=== PATIENT | female | born 1940 | race Caucasian/White ===

== ENCOUNTER 2016-05-22 17:48 | Emergency (ER) | payer MEDICARE ==
[2016-05-22 18:16] VITALS: TEMP 98.7
[2016-05-22] MEDS ORDERED: SODIUM CHLORIDE 0.9% 1,000 ML IV STA (19:09)
[2016-05-22] MEDS ORDERED: SODIUM CHLORIDE 0.9% 500 ML IV STA (19:09)
--- NOTE | 2016-05-22 19:14 | ED ---
General Adult HPI - General Chief complaint: Abdominal Pain Stated complaint: ABDOMINAL PAIN Time Seen by Provider: 05/22/16 18:33 Source: patient, family, RN notes reviewed, old records reviewed Mode of arrival: ambulatory Limitations: no limitations - History of Present Illness Initial comments: Chief complaint and history of present illness 36-year-old female with a complaint of discomfort to the right mid abdomen and the right lower quadrant after examination. Patient has a colonoscopy in the past which showed diverticulosis but she never diverticulitis. She denies any significant change in appetite. She reports her bowel habits have been normal for her which means occasional loose occasional formed. They been darker in color but not black. Denies any nausea no vomiting no injuries. She has a chronic supraumbilical hernia. - Related Data Home Medications Medication Instructions Recorded Confirmed Aspirin EC [Ecotrin Low Dose] 81 mg PO DAILY 05/22/16 05/22/16 Atenolol 100 mg PO DAILY 05/22/16 05/22/16 Calcium Carbonate [Calcium] 600 mg PO DAILY 05/22/16 05/22/16 Hydrochlorothiazide 50 mg PO DAILY 05/22/16 05/22/16 Multivitamins, Thera [Multivitamin] 1 tab PO DAILY 05/22/16 05/22/16 Potassium Chloride [Klor-Con 10] 10 meq PO DAILY 05/22/16 05/22/16 Simvastatin [Zocor] 20 mg PO HS 05/22/16 05/22/16 Previous Rx's Medication Instructions Recorded Levofloxacin [Levaquin] 500 mg PO DAILY #7 tab 05/23/16 metroNIDAZOLE [Flagyl] 500 mg PO QID #28 tab 05/23/16 Allergies Allergy/AdvReac Type Severity Reaction Status Date / Time No Known Allergies Allergy Verified 05/22/16 18:30 Review of Systems ROS Statement: Those systems with pertinent positive or pertinent negative responses have been documented in the HPI. Review of systems. No visual acuity or headache. No chest pain or shortness of breath. No epigastric discomfort , discomfort more toward the right mid abdomen and right lower quadrant. No dizziness. No neuro deficits. All systems were otherwise reviewed. Past medical problems significant for diet-controlled diabetes, hyperlipidemia hypertension and osteoarthritis. Surgeries tonsils and adenoids. Family history cancer of unknown type. Patient denies ALLERGIES nonsmoker nondrinker. ROS Other: All systems not noted in ROS Statement are negative. Past Medical History Past Medical History: Diabetes Mellitus, Hyperlipidemia, Hypertension, Osteoarthritis (OA) History of Any Multi-Drug Resistant Organisms: None Reported Past Surgical History: Adenoidectomy, Tonsillectomy Past Psychological History: No Psychological Hx Reported Smoking Status: Never smoker Past Alcohol Use History: None Reported Past Drug Use History: None Reported General Exam - General Exam Comments Initial Comments: General: The patient is awake and alert, planes of mild right lower right mid lateral abdominal pain. Vital signs temp 98.7 pulse 68 respiratory 18 pulse ox 96. Room air blood pressure 138/66. Mildly elevated systolic noted. Patient will be seeing her family physician next 1-4 weeks. Eye: Pupils are equal, round and reactive to light, extra-ocular movements are intact ; there is normal conjunctiva bilaterally. No signs of icterus. Ears, nose, mouth and throat: There are moist mucous membranes and no oral lesions. Neck: The neck is supple, there is no tenderness ,, no anterior cervical lymphadenopathy Cardiovascular: There is a regular rate and rhythm. No murmur, rub or gallop is appreciated. Respiratory: Lungs are clear to auscultation, respirations are non-labored, breath sounds are equal. No wheezes, stridor, rales, or rhonchi. Gastrointestinal: Mildly tender but reducible supraumbilical hernia. Long-standing. Discomfort with reduced. Also discomfort to the right lower quadrant but no guarding no rebound or referred pain. History of diverticulosis from colonoscopy years ago. Back: There is no tenderness to palpation in the midline. There is no obvious deformity. No rashes noted. Musculoskeletal: Normal ROM, no tenderness, There is no pedal edema. There is no calf tenderness or swelling. Sensation intact. Pulses equal bilaterally 2+. Neurological: No neuro deficits. Skin: Skin is warm and dry and no rashes or lesions are noted. Limitations: no limitations Course Vital Signs 05/22/16 18:14 Temperature 98.7 F Pulse Rate 68 Respiratory 18 Rate Blood Pressure 138/66 O2 Sat by Pulse 96 Oximetry Medical Decision Making - Medical Decision Making Medical decision making the patient's white count 8.4 hemoglobin 14 hematocrit of 44, potassium 3.4 with a BUN of 18 creatinine 0.6 with a GFR greater than 60. UA shows moderate leuk esterase 5 WBCs. Amylase and lipase within normal limits. X-ray of the abdomen was done reviewed by radiologist his impression is is no sign of intestinal obstruction or pneumoperitoneum. Fecal pattern is normal. There is no sign of mass. There are no pathologic calcifications over the kidneys. Lung bases are clear. Impression; nonacute abdomen as read by Dr. Rosas CT of the abdomen was done with IV and oral contrast. Radiologist reviewed his significant findings include; there is suggestion of a few small gallstones in the gallbladder. But no significant acute cholecystitis changes are noted. No hydronephrosis or obstructing opaque stones are noted in the kidneys. Bowel no significant inflammation is noted in the appendix area. Stomach appears grossly unremarkable. Small bowel loop showed no significant obstruction and/ or opacified with contrast. Moderate contrast and the gas distention of the colonic bowel loops is noted. There is evidence of mild to moderate colonic diverticulosis especially involving the descending and sigmoid colon. Possibility of mild acute diverticulitis changes cannot be excluded the sigmoid colon with mucosal thickening. No significant abscess collection is noted. Opacified appendix appears grossly unremarkable in the axial image 48 and coronal image 42. Diffuse mild to moderate atherosclerotic calcification is noted in the abdominal aorta and iliac arteries. There is moderate sized fat- containing and omentum containing umbilical hernia with the neck measuring 2 cm no bowel herniation is noted. Impression #12 gallstones are noted in the gallbladder possibility of acute cholecystitis cannot be excluded on this study. #2 thyromegaly fatty infiltration of liver. #3 moderate fat-containing umbilical hernia. #4 moderate colonic diverticulosis of the sigmoid colon possibility of mild acute diverticulitis changes cannot be excluded. No significant abscess collection is noted. #5 right renal cyst. As read by Dr. Hernandez These findings are consistent with what appears to be mild diverticulitis with discomfort in the suprapubic region. The patient will this time be started on Flagyl and Levaquin. Advised follow-up with family physician. If she develops discomfort to the right upper quadrant ultrasound will be performed. - Lab Data Result diagrams: 05/22/16 19:20 05/22/16 19:20 Lab Results 05/22/16 05/22/16 05/22/16 Range/Units 19:20 19:20 19:20 WBC 8.4 (3.8-10.6) k/uL RBC 4.63 (3.80-5.40) m/uL Hgb 14.1 (11.4-16.0) gm/dL Hct 44.0 (34.0-46.0) % MCV 95.1 (80.0-100.0) fL MCH 30.5 (25.0-35.0) pg MCHC 32.1 (31.0-37.0) g/dL RDW 13.3 (11.5-15.5) % Plt Count 182 (150-450) k/uL Neutrophils % 59 % Lymphocytes % 27 % Monocytes % 8 % Eosinophils % 3 % Basophils % 1 % Neutrophils # 4.9 (1.3-7.7) k/uL Lymphocytes # 2.3 (1.0-4.8) k/uL Monocytes # 0.6 (0-1.0) k/uL Eosinophils # 0.3 (0-0.7) k/uL Basophils # 0.1 (0-0.2) k/uL Sodium 141 (137-145) mmol/L Potassium 3.4 L (3.5-5.1) mmol/L Chloride 99 (98-107) mmol/L Carbon Dioxide 31 H (22-30) mmol/L Anion Gap 11 mmol/L BUN 18 H (7-17) mg/dL Creatinine 0.60 (0.52-1.04) mg/dL Est GFR (MDRD) Af Amer >60 (>60 ml/min/1.73 sqM) Est GFR (MDRD) Non-Af >60 (>60 ml/min/1.73 sqM) Glucose 97 (74-99) mg/dL Plasma Lactic Acid Nolan 0.9 (0.7-2.0) mmol/L Calcium 10.6 H (8.4-10.2) mg/dL Total Bilirubin 0.6 (0.2-1.3) mg/dL AST 28 (14-36) U/L ALT 37 (9-52) U/L Alkaline Phosphatase 60 (38-126) U/L Total Protein 6.6 (6.3-8.2) g/dL Albumin 3.9 (3.5-5.0) g/dL Amylase <30 L (30-110) U/L Lipase 94 (23-300) U/L Urine Color Urine Appearance (Clear) Urine pH (5.0-8.0) Ur Specific [place] (1.001-1.035) Urine Protein (Negative) Urine Glucose (UA) (Negative) Urine Ketones (Negative) Urine Blood (Negative) Urine Nitrate (Negative) Urine Bilirubin (Negative) Urine Urobilinogen (<2.0) mg/dL Ur Leukocyte Esterase (Negative) Urine WBC (0-5) /hpf Ur Squamous Epith Cells (0-4) /hpf Amorphous Sediment (None) /hpf Urine Mucus (None) /hpf 05/22/16 Range/Units 19:20 WBC (3.8-10.6) k/uL RBC (3.80-5.40) m/uL Hgb (11.4-16.0) gm/dL Hct (34.0-46.0) % MCV (80.0-100.0) fL MCH (25.0-35.0) pg MCHC (31.0-37.0) g/dL RDW (11.5-15.5) % Plt Count (150-450) k/uL Neutrophils % % Lymphocytes % % Monocytes % % Eosinophils % % Basophils % % Neutrophils # (1.3-7.7) k/uL Lymphocytes # (1.0-4.8) k/uL Monocytes # (0-1.0) k/uL Eosinophils # (0-0.7) k/uL Basophils # (0-0.2) k/uL Sodium (137-145) mmol/L Potassium (3.5-5.1) mmol/L Chloride (98-107) mmol/L Carbon Dioxide (22-30) mmol/L Anion Gap mmol/L BUN (7-17) mg/dL Creatinine (0.52-1.04) mg/dL Est GFR (MDRD) Af Amer (>60 ml/min/1.73 sqM) Est GFR (MDRD) Non-Af (>60 ml/min/1.73 sqM) Glucose (74-99) mg/dL Plasma Lactic Acid Nolan (0.7-2.0) mmol/L Calcium (8.4-10.2) mg/dL Total Bilirubin (0.2-1.3) mg/dL AST (14-36) U/L ALT (9-52) U/L Alkaline Phosphatase (38-126) U/L Total Protein (6.3-8.2) g/dL Albumin (3.5-5.0) g/dL Amylase (30-110) U/L Lipase (23-300) U/L Urine Color Yellow Urine Appearance Cloudy H (Clear) Urine pH 7.5 (5.0-8.0) Ur Specific [place] 1.013 (1.001-1.035) Urine Protein Negative (Negative) Urine Glucose (UA) Negative (Negative) Urine Ketones Negative (Negative) Urine Blood Negative (Negative) Urine Nitrate Negative (Negative) Urine Bilirubin Negative (Negative) Urine Urobilinogen <2.0 (<2.0) mg/dL Ur Leukocyte Esterase Moderate H (Negative) Urine WBC 5 (0-5) /hpf Ur Squamous Epith Cells 8 H (0-4) /hpf Amorphous Sediment Occasional H (None) /hpf Urine Mucus Rare H (None) /hpf Disposition Clinical Impression: Diverticulitis large intestine Disposition: HOME SELF-CARE Condition: Fair Instructions: Diverticulitis Diet (ED), Diverticulitis (ED) Additional Instructions: Increase fluids, take ibuprofen for pain. Take antibiotics as completed. Follow-up family physician. Pain increases return emergency room. No greasy fatty foods Prescriptions: Levofloxacin [Levaquin] 500 mg PO DAILY #7 tab metroNIDAZOLE [Flagyl] 500 mg PO QID #28 tab Time of Disposition: 00:55
[2016-05-22 19:32] LABS: Basophils # (A) 0.1 k/uL (0-0.2); Basophils % (A) 1 %; CH 31.7; CHCM 33.5; Eosinophils # (A) 0.3 k/uL (0-0.7); Eosinophils % (A) 3 %; HDW 2.26; HGB 14.1 gm/dL (11.4-16.0); Luc # (Auto) 0.22; Luc % (Auto) 3; Lymphocytes # (A) 2.3 k/uL (1.0-4.8); Lymphocytes % (A) 27 %; MCH 30.5 pg (25.0-35.0); MCHC 32.1 g/dL (31.0-37.0); MCV 95.1 fL (80.0-100.0); Mean Platelet Volume 8.8; Monocytes # (A) 0.6 k/uL (0-1.0); Monocytes % (A) 8 %; Neutrophils # (A) 4.9 k/uL (1.3-7.7); Neutrophils % (A) 59 %; RBC 4.63 m/uL (3.80-5.40); RDW 13.3 % (11.5-15.5); WBC 8.4 k/uL (3.8-10.6); WBC (Perox) 8.42
[2016-05-22 19:41] LABS: ALT 37 U/L (9-52); AST 28 U/L (14-36); Alkaline Phosphatase 60 U/L (38-126); Amylase <30 U/L (30-110); Anion Gap 11 mmol/L; Blood Urea Nitrogen 18 mg/dL (7-17); Calcium 10.6 mg/dL (8.4-10.2); Carbon Dioxide 31 mmol/L (22-30); Chloride 99 mmol/L (98-107); Glucose 97 mg/dL (74-99); Non-African American GFR(MDRD) >60 (>60 ml/min/1.73 sqM); Potassium 3.4 mmol/L (3.5-5.1); Sodium 141 mmol/L (137-145); Total Bilirubin 0.6 mg/dL (0.2-1.3); Total Protein 6.6 g/dL (6.3-8.2)
[2016-05-22 19:46] LABS: Amorphous Sediment,Urine Occasional /hpf; Appearance,Urine Cloudy (Clear); Bilirubin,Urine Negative (Negative); Glucose,Urine (UA) Negative (Negative); Ketones,Urine Negative (Negative); Leukocyte Esterase,Urine Moderate (Negative); Mucus,Urine Rare /hpf; Nitrite,Urine Negative (Negative); PH, Urine 7.5 (5.0-8.0); Particle Count 25610; Protein,Urine Negative (Negative); Specific Gravity,Urine 1.013 (1.001-1.035); Squamous Epithelial Cell,Urine 8 /hpf (0-4); UA Billing (MACRO vs. MICRO) MICRO; Urobilinogen,Urine <2.0 mg/dL (<2.0); WBC,Urine 5 /hpf (0-5)
--- NOTE | 2016-05-22 20:53 | XR ---
EXAMINATION TYPE: XR abdomen 2V DATE OF EXAM: 05/22/2016 8:32 PM COMPARISON: NONE HISTORY: Right lower quadrant pain TECHNIQUE: 3 views FINDINGS: There is no sign of intestinal obstruction or pneumoperitoneum. Fecal pattern is normal. Th ere is no sign of a mass. There are no pathologic calcifications over the kidneys. Lung bases are misbah ar. IMPRESSION: Nonacute abdomen.
[2016-05-22] MEDS ORDERED: IOHEXOL 350 MG/ML 25 ML BOTTLE (ORAL USE) PO PRN (22:22)
[2016-05-22] MEDS ORDERED: RX INFO: IV CONTRAST WAS GIVEN 1 EACH MISC MISCELLANE PRN (22:22)
--- NOTE | 2016-05-23 00:36 | CT ---
EXAMINATION TYPE: CT abdomen pelvis w con DATE OF EXAM: 05/23/2016 12:17 AM COMPARISON: NONE HISTORY: Rt sided abd pain. History of diverticulosis CT DLP: 1214.60 mGycm Automated exposure control for dose reduction was used. TECHNIQUE: Helical acquisition of images was performed from the lung bases through the pelvis. CONTRAST: Performed with Oral Contrast and with IV Contrast, patient injected with 100 mL of Omnipaque 300. FINDINGS: LUNG BASES: Mild dependent atelectasis is noted in both lung bases. Fat density area in the left lung base in the axial image 6 is most likely related to peritoneal fat with mild focal eventration herrera es of left hemidiaphragm. LIVER/GB: Mild fatty infiltration changes of liver are noted. Mild hepatomegaly is noted with promine nt Serge's lobe of the liver. There is suggestion of few small gallstones in the gallbladder. No significant acute cholecystitis ch anges are noted in this study. However if clinically indicated an ultrasound study would BE beneficia l for the gallbladder evaluation. PANCREAS: No significant abnormality is seen. SPLEEN: No significant abnormality is seen. ADRENALS: No significant abnormality is seen. KIDNEYS: Benign-appearing cystic changes are noted in the right kidney with the largest cyst measurin g 6 mm in the right kidney in the axial image 25. No hydronephrosis or obstructing opaque stones are noted in both kidneys. REPRODUCTIVE ORGANS: Uterus is tilted towards right. Both ovaries appear grossly unremarkable. URINARY BLADDER: No significant abnormality is seen. PELVIC ADENOPATHY: None visualized. OSSEOUS STRUCTURES: Mild multilevel degenerative changes are present in the thoracolumbar spine with disc disease changes at L5-S1. BOWEL: No significant inflammation is noted in the appendix area. Stomach appears grossly unremarkable. Small bowel loops showed no significant obstruction and are opa cified with contrast. Moderate contrast and the gas distention of colonic bowel loops is noted. There is evidence of mild t o moderate colonic diverticulosis especially involving descending and sigmoid colon. Possibility of m ild acute diverticulitis changes cannot be excluded in the sigmoid colon with mucosal thickening. No significant abscess collection is noted. Opacified appendix appears grossly unremarkable in the axial image 48 and coronal image 42. OTHERS: Diffuse [id number] atherosclerotic calcification is noted in the abdominal aorta and il iac arteries. There is moderate-sized fat-containing and omentum containing umbilical hernia with a neck measuring 2 cm in the axial image 50. No bowel herniation is noted. Small fat-containing inguinal hernias are noted bilaterally. IMPRESSION: 1. FEW GALLSTONES ARE NOTED IN THE GALLBLADDER. POSSIBILITY OF ACUTE CHOLECYSTITIS CANNOT BE EXCLUDED ON THIS STUDY. IF CLINICALLY INDICATED ULTRASOUND STUDY WOULD BE BENEFICIAL. 2. HEPATOMEGALY AND FATTY INFILTRATION OF LIVER. 3. MODERATE FAT-CONTAINING UMBILICAL HERNIA. 4. MODERATE COLONIC DIVERTICULOSIS OF SIGMOID COLON AND POSSIBILITY OF MILD ACUTE DIVERTICULITIS PÉREZ GES CANNOT BE EXCLUDED. NO SIGNIFICANT ABSCESS COLLECTION IS NOTED. 5. RIGHT RENAL CYSTS. A PHONE REPORT IS GIVEN TO DR. SCHUSTER AT THE TIME OF THE DICTATION.
[2016-05-23] MEDS ORDERED: LEVOFLOXACIN 500 MG TAB PO STA (00:53)
[2016-05-23] MEDS ORDERED: metroNIDAZOLE-NS PMX 500 MG in SALINE 1 100ML.BAG IVPB STA (00:53)
[2016-05-23] MEDS ORDERED: ACETAMINOPHEN TAB 500 MG TAB PO STA (00:57)
[2016-05-23 01:16] VITALS: BP 130/80; PULSE 70; RESP 16
== END 2016-05-23 01:15 | disposition home or self-care (01) ==
LOC: EC 17:48
DX: K57.32 Diverticulitis of large intestine without perforation or abscess without bleeding (principal); E78.5 Hyperlipidemia, unspecified; I10 Essential (primary) hypertension; M19.90 Unspecified osteoarthritis, unspecified site; Z79.82 Long term (current) use of aspirin; Z79.899 Other long term (current) drug therapy; R03.0 Elevated blood-pressure reading, without diagnosis of hypertension
CPT/HCPCS: 99285; 36415; 80053; 82150; 83605; 83690; 85025; 81001; 87086; 74020; 74177; Q9967

== ENCOUNTER → 2016-06-28 | Outpatient (CLI) | payer MEDICARE ==
[2016-06-28 13:19] LABS: Anion Gap 14 mmol/L; Blood Urea Nitrogen 16 mg/dL (7-17); Carbon Dioxide 30 mmol/L (22-30); Chloride 99 mmol/L (98-107); Non-African American GFR(MDRD) >60 (>60 ml/min/1.73 sqM); Potassium 4.2 mmol/L (3.5-5.1); Sodium 143 mmol/L (137-145)
== END | disposition home or self-care (01) ==
LOC: LABWHC1 12:28
PROVIDERS: ATTEND Internal Medicine Interventional Cardiology
DX: E78.2 Mixed hyperlipidemia (principal)
CPT/HCPCS: 36415; 80051; 82565; 84520

== ENCOUNTER → 2016-09-09 | Outpatient (CLI) | payer MEDICARE ==
--- NOTE | 2016-09-10 20:22 | US ---
EXAMINATION TYPE: US carotid duplex BILAT DATE OF EXAM: 09/09/2016 6:29 PM COMPARISON: 07/30/2013 CLINICAL HISTORY: 76-year-old female Carotid Artery Stenosis I65.29. Possible mini stroke x 2-3 years ago, HTN TECHNIQUE: Carotid duplex ultrasound examination. Indirect Doppler criteria was utilized. FINDINGS: No significant atherosclerotic change seen at either bifurcation. EXAM MEASUREMENTS: RIGHT: Peak Systolic Velocity (PSV) cm/sec ----- Right CCA: 87.9 ----- Right ICA: 88.8 ----- Right ECA: 85.5 ICA/CCA ratio: 1.0 RIGHT: End Diastole cm/sec ----- Right CCA: 24.8 ----- Right ICA: 29.3 ----- Right ECA: 10.6 LEFT: Peak Systolic Velocity (PSV) cm/sec ----- Left CCA: 71.5 ----- Left ICA: 108.2 ----- Left ECA: 84.7 ICA/CCA ratio: 1.5 LEFT: End Diastole cm/sec ----- Left CCA: 19.7 ----- Left ICA: 32.2 ----- Left ECA: 10.9 VERTEBRALS (direction of flow): Right Vertebral: Antegrade Left Vertebral: Antegrade IMPRESSION: No hemodynamically significant stenosis appreciated in either internal carotid artery. Criteria for Assigning % of Stenosis / Diameter reduction (Estimation based on the indirect measurements of the internal carotid artery velocities (ICA PSV). 1. Normal (no stenosis)=ICA PSV < 125 cm/s: ratio < 2.0: ICA EDV<40 cm/s. 2. Less than 50% stenosis=ICA PSV < 125 cm/s: ratio < 2.0: ICA EDV<40 cm/s. 3. 50 to 69% stenosis=ICA PSV of 125 to 230 cm/s: ration 2.0 ? 4.0: ICA EDV 40-100 cm/s. 4. Greater than 70% stenosis to near occlusion= ICA PSV > 230 cm/s: ratio > 4.0: ICA EDV > 100 cm/s. 5. Near occlusion= ICA PSV velocities may be low or undetectable: variable ratio and ICA EDV. 6. Total occlusion=unable to detect flow.
== END | disposition home or self-care (01) ==
LOC: RADUSMAIN 17:59
PROVIDERS: ATTEND Family Medicine
DX: I65.29 Occlusion and stenosis of unspecified carotid artery (principal)
CPT/HCPCS: 93880

== ENCOUNTER → 2016-11-21 | Outpatient (CLI) | payer MEDICARE ==
[2016-11-21 13:47] LABS: ALT 36 U/L (9-52); AST 29 U/L (14-36); Alkaline Phosphatase 57 U/L (38-126); Anion Gap 10 mmol/L; Blood Urea Nitrogen 19 mg/dL (7-17); Calcium 9.5 mg/dL (8.4-10.2); Carbon Dioxide 32 mmol/L (22-30); Chloride 100 mmol/L (98-107); Cholesterol 142 mg/dL (<200); Glucose 102 mg/dL (74-99); HDL Cholesterol 30 mg/dL (40-60); Non-African American GFR(MDRD) >60 (>60 ml/min/1.73 sqM); Potassium 3.6 mmol/L (3.5-5.1); Sodium 142 mmol/L (137-145); Total Bilirubin 0.7 mg/dL (0.2-1.3); Total Protein 6.7 g/dL (6.3-8.2); Triglycerides 132 mg/dL (<150)
== END | disposition home or self-care (01) ==
LOC: LABWHC1 12:33
PROVIDERS: ATTEND Internal Medicine Interventional Cardiology
DX: E78.2 Mixed hyperlipidemia (principal)
CPT/HCPCS: 36415; 80053; 80061

== ENCOUNTER → 2017-02-20 | Outpatient (CLI) | payer MEDICARE ==
[2017-02-20 10:19] LABS: Basophils # (A) 0.1 k/uL (0-0.2); Basophils % (A) 1 %; CH 30.5; CHCM 32.5; Eosinophils # (A) 0.2 k/uL (0-0.7); Eosinophils % (A) 3 %; HCT 44.6 % (34.0-46.0); HDW 2.14; HGB 14.7 gm/dL (11.4-16.0); Luc # (Auto) 0.26; Luc % (Auto) 4; Lymphocytes # (A) 1.5 k/uL (1.0-4.8); Lymphocytes % (A) 23 %; MCH 31.1 pg (25.0-35.0); MCV 94.4 fL (80.0-100.0); Mean Platelet Volume 7.9; Monocytes # (A) 0.6 k/uL (0-1.0); Monocytes % (A) 9 %; Neutrophils # (A) 3.9 k/uL (1.3-7.7); Neutrophils % (A) 60 %; RBC 4.72 m/uL (3.80-5.40); RDW 13.6 % (11.5-15.5); WBC 6.5 k/uL (3.8-10.6); WBC (Perox) 6.84
[2017-02-20 10:53] LABS: ALT 31 U/L (9-52); AST 30 U/L (14-36); Alkaline Phosphatase 57 U/L (38-126); Anion Gap 11 mmol/L; Blood Urea Nitrogen 16 mg/dL (7-17); Calcium 9.4 mg/dL (8.4-10.2); Carbon Dioxide 32 mmol/L (22-30); Chloride 99 mmol/L (98-107); Glucose 101 mg/dL (74-99); Non-African American GFR(MDRD) >60 (>60 ml/min/1.73 sqM); Potassium 3.8 mmol/L (3.5-5.1); Sodium 142 mmol/L (137-145); Total Bilirubin 0.5 mg/dL (0.2-1.3)
[2017-02-20 11:38] LABS: Hemoglobin A1C 5.6 % (4.2-6.1)
== END | disposition home or self-care (01) ==
LOC: LABWHC1 09:28
PROVIDERS: ATTEND Family Medicine
DX: E78.5 Hyperlipidemia, unspecified (principal); E11.9 Type 2 diabetes mellitus without complications
CPT/HCPCS: 36415; 80053; 83036; 84439; 84443; 85025

== ENCOUNTER → 2017-03-24 | Outpatient (CLI) | payer MEDICARE ==
--- NOTE | 2017-03-27 09:29 | MM ---
Reason for exam: screening (asymptomatic). Last mammogram was performed 1 year ago. History: Patient is postmenopausal. Physical Findings: A clinical breast exam by your physician is recommended on an annual basis and results should be correlated with mammographic findings. MG Screening Mammo w CAD Bilateral CC and MLO view(s) were taken. Prior study comparison: March 21, 2016, bilateral MG screening mammo w CAD. August 08, 2014, bilateral MG screening mammo w CAD. The breast tissue is almost entirely fat. There is chronic nodularity in the right breast. No significant changes when compared with prior studies. ASSESSMENT: Benign, BI-RAD 2 RECOMMENDATION: Routine screening mammogram of both breasts in 1 year.
--- NOTE | 2017-03-29 15:16 | BD ---
EXAMINATION TYPE: MG DEXA axial skeleton. DATE OF EXAM: 03/24/2017 COMPARISON: 08.08.2014 DEXA bone scan CLINICAL HISTORY: PT IS A 77 YR OLD FEMALE...ISD10 CODE: Z78.0 ASYMPTOMATIC MENOPAUSE Height: 58.5 Weight: 183 FRAX RISK QUESTIONS: Alcohol (3 or more units per day): NO Family History (Parent hip fracture): NO Glucocorticoids (More than 3mos): NO (Ex: prednisone, prednisolone, methylprednisolone, dexamethasone, and hydrocortisone). History of Fracture in Adulthood: NO Secondary Osteoporosis: NO 1. Type 1 Diabetes: NO 2. Hyperthyroidism: NO 3. Menopause before 45: NO 4. Malnutrition: NO 5. Chronic liver disease: NO Rheumatoid Arthritis: NO Current Tobacco Use: NO RISK FACTORS HISTORY OF: Family History of Osteoporosis: NO Active: MEDIUM Diet low in dairy products/other sources of calcium: NO Postmenopausal woman: 56 YRS OLD Lost more than 2 inches in height since high school: YES Hyperparathyroidism: NO Adrenal Insufficiency: NO MEDICATIONS: Additional Medications: BP MEDS, STATINS FOR CHOLESTEROL, VIT D AND CALCIUM Additional History: BORDERLINE DIABETIC, OSTEOARTHRITIS EXAM MEASUREMENTS: Bone mineral densitometry was performed using the [employer] System. Bone mineral density as measured about the Lumbar spine is: ----- L1-L4(G/cm2): 1.279 T Score Values are as follows: ----- L1: 1.8 ----- L2: 0.8 ----- L3: 0.9 ----- L4: 0.1 ----- L1-L4: 0.8 Bone mineral density has: Increased 1.9% SINCE STUDY OF 08.08.2014 Bone mineral density about the R hip (g/cm2): 1.145 Bone mineral density about the L hip (g/cm2): 1.203 T Score values are as follows: -----R Neck: 0.2 -----L Neck: 1.2 -----R Total: 1.1 -----L Total: 1.6 Bone mineral density has: Decreased -3.1% SINCE STUDY OF 08.08.2014 FRAX%'S: THERE IS A 6.7% CHANCE OF A MAJOR OSTEOPOROTIC FX AND A 0.5% FOR HIP FX....PROBABILITY OF FX IN 10 YRS TIME IMPRESSION: Normal (Values between +1 and -1 indicate normal bone mass). No significant change from prior. Consid er repeating this study in 5 years or sooner if there is some new clinical indication. NOTE: T-SCORE=SD OF THE YOUNG ADULT MEAN.
== END | disposition home or self-care (01) ==
LOC: RADMAMWWP 14:05
PROVIDERS: ATTEND Family Medicine
DX: Z12.31 Encounter for screening mammogram for malignant neoplasm of breast (principal); Z78.0 Asymptomatic menopausal state
CPT/HCPCS: 77080; G0202

== ENCOUNTER → 2017-11-17 | Outpatient (CLI) | payer MEDICARE ==
[2017-11-17 12:29] LABS: ALT 31 U/L (9-52); AST 36 U/L (14-36); Cholesterol 140 mg/dL (<200); HDL Cholesterol 28 mg/dL (40-60); LDL Cholesterol,Calculated 76 mg/dL (0-99); Triglycerides 178 mg/dL (<150)
== END | disposition home or self-care (01) ==
LOC: LABWHC1 11:44
PROVIDERS: ATTEND Internal Medicine Interventional Cardiology
DX: E78.2 Mixed hyperlipidemia (principal)
CPT/HCPCS: 36415; 80061; 84450; 84460

== ENCOUNTER → 2018-06-29 | Outpatient (CLI) | payer MEDICARE ==
[2018-06-29 17:47] LABS: Albumin/Globulin Ratio 1.9 (1.60-3.17); Anion Gap 5.8 mmol/L (4.00-12.00); Calcium 9.6 mg/dL (8.7-10.3); Carbon Dioxide 34.2 mmol/L (21.6-31.8); Globulin 2.1 g/dL (1.6-3.3); LDL Cholesterol,Calculated 80.8 mg/dL (0.0-131.0); Total Bilirubin 0.6 mg/dL (0.2-1.2); Total Protein 6.1 g/dL (6.2-8.2); VLDL Calculation 25.2 mg/dL (5.00-40.00)
== END | disposition home or self-care (01) ==
LOC: LABWHC1 10:44
PROVIDERS: ATTEND Internal Medicine Interventional Cardiology
DX: E78.2 Mixed hyperlipidemia (principal)
CPT/HCPCS: 36415; 80053; 80061

== ENCOUNTER → 2019-05-01 | Outpatient (CLI) | payer MEDICARE ==
--- NOTE | 2019-05-01 14:39 | BD ---
EXAMINATION TYPE: Axial Bone Density DATE OF EXAM: 05/01/2019 COMPARISON: DEXA bone scan March 24, 2017 CLINICAL HISTORY: Postmenopausal female Height: 4 FT 10 IN Weight: FRAX RISK QUESTIONS: Alcohol (3 or more units per day): NO Family History (Parent hip fracture): NO Glucocorticoids (More than 3mos): NO (Ex: prednisone, prednisolone, methylprednisolone, dexamethasone, and hydrocortisone). History of Fracture in Adulthood: NO Secondary Osteoporosis: 1. Type 1 Diabetes: NO 2. Hyperthyroidism: NO 3. Menopause before 45: NO 4. Malnutrition: NO 5. Chronic liver disease: NO Rheumatoid Arthritis: NO Current Tobacco Use: NO RISK FACTORS HISTORY OF: Active: YES Postmenopausal woman: AGE 51 Lost more than 2 inches in height since high school: YES MEDICATIONS: Additional Medications: MULTI VIT Additional History: EXAM MEASUREMENTS: Bone mineral densitometry was performed using the [employer] System. Bone mineral density as measured about the Lumbar spine is: ----- L1-L4(G/cm2): 1.272 T Score Values are as follows: ----- L2: 1.3 ----- L3: 1.0 ----- L4: -0.3 ----- L1-L4: 0.8 Bone mineral density has: DECREASED -0.4 % since study of: 2016 Bone mineral density about the R hip (g/cm2): 1.096 Bone mineral density about the L hip (g/cm2): 1.181 T Score values are as follows: -----R Neck: 0.4 -----L Neck: 1.0 -----R Total: 0.8 -----L Total: 1.4 Bone mineral density has: DECREASED -2.5 % since study of: 2016 IMPRESSION: Normal (Values between +1 and -1 indicate normal bone mass). Consider repeating this study in 5 year s or sooner if there is some new clinical indication. NOTE: T-SCORE=SD OF THE YOUNG ADULT MEAN.
--- NOTE | 2019-05-02 13:30 | MM ---
Reason for exam: screening (asymptomatic). Last mammogram was performed 1 year and 1 month ago. History: Patient is postmenopausal. Physical Findings: A clinical breast exam by your physician is recommended on an annual basis and results should be correlated with mammographic findings. MG 3D Screening Mammo W/Cad Bilateral CC and MLO view(s) were taken. Prior study comparison: March 28, 2018, bilateral MG 3d screening mammo w/cad. March 24, 2017, bilateral MG screening mammo w CAD. There are scattered fibroglandular densities. Benign appearing bilateral calcifications. No suspicious abnormality. No significant changes when compared with prior studies. ASSESSMENT: Benign, BI-RAD 2 RECOMMENDATION: Routine screening mammogram of both breasts in 1 year.
== END | disposition home or self-care (01) ==
LOC: RADMAMWWP 14:01
PROVIDERS: ATTEND Family Medicine
DX: Z12.31 Encounter for screening mammogram for malignant neoplasm of breast (principal); Z78.0 Asymptomatic menopausal state
CPT/HCPCS: 77063; 77067; 77080

== ENCOUNTER → 2019-07-17 | Outpatient (CLI) | payer MEDICARE ==
[2019-07-17 17:18] LABS: African American GFR (CKD) 96.2 (60.0-200.0); Albumin 4.3 g/dL (3.80-4.90); Albumin/Globulin Ratio 1.95 (1.60-3.17); Anion Gap 8.9 mmol/L (4.00-12.00); BUN/Creat Ratio 24.29 Ratio (12.00-20.00); Calcium 9.2 mg/dL (8.7-10.3); Carbon Dioxide 29.1 mmol/L (21.6-31.8); Chol/HDL Ratio 4.06; Globulin 2.2 g/dL (1.6-3.3); Total Bilirubin 0.5 mg/dL (0.3-1.2); Total Protein 6.5 g/dL (6.2-8.2)
== END | disposition home or self-care (01) ==
LOC: LABWHC1 11:23
PROVIDERS: ATTEND Internal Medicine Interventional Cardiology
DX: E78.2 Mixed hyperlipidemia (principal)
CPT/HCPCS: 36415; 80053; 80061

== ENCOUNTER → 2020-06-01 | Outpatient (CLI) | payer MEDICARE ==
--- NOTE | 2020-06-02 11:21 | MM ---
Reason for exam: screening (asymptomatic). Last mammogram was performed 1 year and 1 month ago. History: Patient is postmenopausal. Physical Findings: A clinical breast exam by your physician is recommended on an annual basis and results should be correlated with mammographic findings. MG 3D Screening Mammo W/Cad Bilateral CC and MLO view(s) were taken. Prior study comparison: May 01, 2019, bilateral MG 3d screening mammo w/cad. March 28, 2018, bilateral MG 3d screening mammo w/cad. There are scattered fibroglandular densities. No significant changes when compared with prior studies. ASSESSMENT: Benign, BI-RAD 2 RECOMMENDATION: Routine screening mammogram of both breasts in 1 year.
== END | disposition home or self-care (01) ==
LOC: RADMAMWWP 13:17
PROVIDERS: ATTEND Family Medicine
DX: Z12.31 Encounter for screening mammogram for malignant neoplasm of breast (principal)
CPT/HCPCS: 77063; 77067

== ENCOUNTER → 2020-06-01 | Outpatient (CLI) | payer MEDICARE ==
[2020-06-02 00:35] LABS: African American GFR (CKD) 95.5 (60.0-200.0); Albumin 4.5 g/dL (3.80-4.90); Albumin/Globulin Ratio 1.96 (1.60-3.17); Anion Gap 8.8 mmol/L (4.00-12.00); BUN/Creat Ratio 35.71 Ratio (12.00-20.00); Calcium 9.8 mg/dL (8.7-10.3); Carbon Dioxide 29.2 mmol/L (21.6-31.8); Chol/HDL Ratio 4.93; Globulin 2.3 g/dL (1.6-3.3); LDL Cholesterol,Calculated 85.6 mg/dL (0.0-131.0); Non-African American GFR(CKD) 82.4 (60.0-200.0); Potassium 4.1 mmol/L (3.5-5.5); Total Bilirubin 0.5 mg/dL (0.3-1.2); Total Protein 6.8 g/dL (6.2-8.2); VLDL Calculation 32.4 mg/dL (5.00-40.00)
== END | disposition home or self-care (01) ==
LOC: LABWHC1 13:21
PROVIDERS: ATTEND Internal Medicine Interventional Cardiology
DX: E78.2 Mixed hyperlipidemia (principal)
CPT/HCPCS: 36415; 80053; 80061

== ENCOUNTER → 2021-03-09 | Outpatient (CLI) | payer MEDICARE ==
[2021-03-09 20:30] LABS: Chol/HDL Ratio 5.38 Ratio; HDL Cholesterol 26.6 mg/dL (40.00-60.00); LDL Cholesterol,Calculated 76.8 mg/dL (0.0-131.0); VLDL Calculation 39.6 mg/dL (5.00-40.00)
== END | disposition home or self-care (01) ==
LOC: LABWHC1 13:11
PROVIDERS: ATTEND Nurse Practitioner Adult Health
DX: E78.2 Mixed hyperlipidemia (principal)
CPT/HCPCS: 36415; 80061; 84450; 84460

== ENCOUNTER → 2021-07-29 | Outpatient (CLI) | payer MEDICARE ==
[2021-07-29 18:20] LABS: ALT 24 U/L (8-44); AST 23 U/L (13-35); Albumin 4.1 g/dL (3.8-4.9); Alkaline Phosphatase 67 U/L (41-126); BUN/Creat Ratio 19.25 Ratio (12.00-20.00); Blood Urea Nitrogen 13.4 mg/dL (9.0-27.0); Calcium 9.4 mg/dL (8.7-10.3); Carbon Dioxide 26.2 mmol/L (20.0-27.5); Chloride 102 mmol/L (96-109); Chol/HDL Ratio 5.61 Ratio; Globulin 2.5 g/dL (1.6-3.3); Glucose 110 mg/dL (70-110); LDL Cholesterol,Calculated 86.1 mg/dL (0.0-131.0); Potassium 4.1 mmol/L (3.5-5.5); Sodium 140 mmol/L (135-145); Total Protein 6.6 g/dL (6.2-8.2)
== END | disposition home or self-care (01) ==
LOC: LABWHC1 12:36
PROVIDERS: ATTEND Nurse Practitioner Adult Health
DX: I10 Essential (primary) hypertension (principal); E78.2 Mixed hyperlipidemia
CPT/HCPCS: 36415; 80053; 80061

== ENCOUNTER → 2022-04-05 | Outpatient (CLI) | payer MEDICARE ==
[2022-04-05 19:46] LABS: ALT 25 U/L (8-44); AST 25 U/L (13-35); Chol/HDL Ratio 4.67 Ratio; LDL Cholesterol,Calculated 89.7 mg/dL (0.0-131.0)
== END | disposition home or self-care (01) ==
LOC: LABWHC1 10:21
PROVIDERS: ATTEND Internal Medicine Interventional Cardiology
DX: E78.2 Mixed hyperlipidemia (principal)
CPT/HCPCS: 36415; 80061; 84450; 84460

== ENCOUNTER → 2022-08-11 | Outpatient (CLI) | payer MEDICARE ==
--- NOTE | 2022-08-12 09:08 | MM ---
Reason for Exam: Screening (asymptomatic). Last mammogram was performed 2 year(s) and 2 month(s) ago. Patient History: Menarche at age 13. First Full-Term at age 26. Postmenopausal. Risk Values: Jonna 5 year model risk: 1.8%. NCI Lifetime model risk: 2.6%. Prior Study Comparison: 03/28/2018 Bilateral Screening Mammogram, [facility]. 05/01/2019 Bilateral Screening Mammogram, [facility]. 06/01/2020 Bilateral Screening Mammogram, [facility]. Tissue Density: There are scattered fibroglandular densities. Findings: Analyzed By CAD. There are benign-appearing punctate and vascular calcifications redemonstrated throughout the bilateral breasts. There is no suspicious new group of microcalcifications or new suspicious mass in either breast. Overall Assessment: Benign, BI-RAD 2 Management: Screening Mammogram of both breasts in 1 year. A clinical breast exam by your physician is recommended on an annual basis and results should be correlated with mammographic findings. Electronically signed and approved by: Alejandro Whaley M.D.
== END | disposition home or self-care (01) ==
LOC: RADMAMWWP 14:48
PROVIDERS: ATTEND Family Medicine
DX: Z12.31 Encounter for screening mammogram for malignant neoplasm of breast (principal); Z78.0 Asymptomatic menopausal state
CPT/HCPCS: 77063; 77067

== ENCOUNTER → 2022-09-29 | Outpatient (CLI) | payer MEDICARE ==
[2022-09-29 15:00] LABS: ALT 73 U/L (8-44); AST 41 U/L (13-35); African American GFR (CKD) 94.2 (60.0-200.0); Albumin/Globulin Ratio 1.43 (1.60-3.17); Alkaline Phosphatase 89 U/L (41-126); BUN/Creat Ratio 26.86 Ratio (12.00-20.00); Blood Urea Nitrogen 18.8 mg/dL (9.0-27.0); Calcium 9.6 mg/dL (8.7-10.3); Carbon Dioxide 27.7 mmol/L (20.0-27.5); Chloride 101 mmol/L (96-109); Chol/HDL Ratio 6.07 Ratio; Globulin 2.8 g/dL (1.6-3.3); Glucose 134 mg/dL (70-110); LDL Cholesterol,Calculated 120.8 mg/dL (0.0-131.0); Non-African American GFR(CKD) 81.3 (60.0-200.0); Potassium 4.4 mmol/L (3.5-5.5); Sodium 140 mmol/L (135-145); Total Protein 6.8 g/dL (6.2-8.2)
== END | disposition home or self-care (01) ==
LOC: LABWHC1 08:18
PROVIDERS: ATTEND Nurse Practitioner Adult Health
DX: I10 Essential (primary) hypertension (principal); E78.2 Mixed hyperlipidemia
CPT/HCPCS: 36415; 80053; 80061

== ENCOUNTER 2023-09-19 12:25 | Inpatient (IN) | payer MEDICARE ==
[2023-09-19] MEDS ORDERED: VANCOMYCIN IV PER PHARMACY 1 EACH MISC MISCELLANE PRN (12:33)
--- NOTE | 2023-09-19 12:44 | ED ---
General Adult HPI - General Chief complaint: Wound/Laceration Stated complaint: Sores on miracle. leg-sent by PCP Time Seen by Provider: 09/19/23 12:30 Source: patient, family, RN notes reviewed, old records reviewed Mode of arrival: ambulatory Limitations: no limitations - History of Present Illness Initial comments: This is an 83-year-old female comes in from Dr. Greene's office. Dr. Greene sent the patient in because she has bilateral cellulitis that has failed outpatient treatment. Patient denies any pain. Patient has any fever or chills. Patient denies any increased swelling is chronic long standing swelling. Patient denies any other symptoms such as abdominal pain difficulty breathing shortness of breath. - Related Data Home Medications Medication Instructions Recorded Confirmed Aspirin EC [Ecotrin Low Dose] 81 mg PO DAILY 05/22/16 09/19/23 Calcium Carbonate [Calcium] 600 mg PO DAILY 05/22/16 09/19/23 Multivitamins, Thera [Multivitamin] 1 tab PO DAILY 05/22/16 09/19/23 atenoloL 100 mg PO DAILY 05/22/16 09/19/23 Atorvastatin [Lipitor] 40 mg PO DAILY 09/19/23 09/19/23 Cefdinir [Omnicef] 300 mg PO BID 09/19/23 09/19/23 Previous Rx's Medication Instructions Recorded Levofloxacin [Levaquin] 500 mg PO DAILY #7 tab 05/23/16 Allergies Allergy/AdvReac Type Severity Reaction Status Date / Time No Known Allergies Allergy Verified 09/19/23 14:06 Review of Systems ROS Statement: Those systems with pertinent positive or pertinent negative responses have been documented in the HPI. ROS Other: All systems not noted in ROS Statement are negative. Past Medical History Past Medical History: Dementia, Diabetes Mellitus, Hyperlipidemia, Hypertension, Osteoarthritis (OA) History of Any Multi-Drug Resistant Organisms: None Reported Past Surgical History: Adenoidectomy, Tonsillectomy Past Psychological History: No Psychological Hx Reported Past Alcohol Use History: None Reported Past Drug Use History: None Reported General Exam - General Exam Comments Initial Comments: GENERAL: Patient is well-developed and well-nourished. Patient is nontoxic and well- hydrated and is in mild distress. ENT: Neck is soft and supple. No significant lymphadenopathy is noted. Oropharynx is clear. Moist mucous membranes. Neck has full range of motion without eliciting any pain. EYES: The sclera were anicteric and conjunctiva were pink and moist. Extraocular movements were intact and pupils were equal round and reactive to light. Eyelids were unremarkable. PULMONARY: Unlabored respirations. Good breath sounds bilaterally. No audible rales rhonchi or wheezing was noted. CARDIOVASCULAR: There is a regular rate and rhythm without any murmurs gallops or rubs. ABDOMEN: Soft and nontender with normal bowel sounds. SKIN: Patient has some stage I breakdown on the posterior aspect of both lower legs the left greater than the right there is some redness around the left posterior leg. NEUROLOGIC: Patient is alert and oriented x3. Cranial nerves II through XII are grossly intact. Motor and sensory are also intact. Normal speech, volume and content. Symmetrical smile. MUSCULOSKELETAL: Normal extremities with adequate strength and full range of motion. Patient has 4+ edema bilaterally LYMPHATICS: No significant lymphadenopathy is noted PSYCHIATRIC: Normal psychiatric evaluation. Limitations: no limitations Course Vital Signs 09/19/23 12:29 Temperature 98.1 F Pulse Rate 72 Respiratory 18 Rate Blood Pressure 152/79 O2 Sat by Pulse 97 Oximetry Medical Decision Making - Medical Decision Making EKG is interpreted by myself. EKG shows a sinus rhythm with occasional PAC at a rate of 71 bpm parables 151 QRS is 124 QT interval is 405 QTc is 427. Patient EKG shows no ST segment ovation or depression. Was pt. sent in by a medical professional or institution (, [facility], [facility] [facility], urgent care, hospital, or fdc...) When possible be specific @ -Dr. Greene sent the patient in Did you speak to anyone other than the patient for history (EMS, parent, family, police, friend...)? What history was obtained from this source @ -No Did you review nursing and triage notes (agree or disagree)? Why? @ -I reviewed and agree with nursing and triage notes Were old charts reviewed (outside hosp., previous admission, EMS record, old EKG, old radiological studies, urgent care reports/EKG's, fdc records)? Report findings @ -I reviewed prior lab work with today's lab work and there is no acute abnormality noted. Differential Diagnosis (chest pain, altered mental status, abdominal pain women, abdominal pain men, vaginal bleeding, weakness, fever, dyspnea, syncope, headache, dizziness, GI bleed, back pain, seizure, CVA, palpatations, mental health, musculoskeletal)? @ -Chronic cellulitis, acute cellulitis, DVT, lymphedema, chronic edema this is not an all-inclusive list EKG interpreted by me (3pts min.). @ -As above X-rays interpreted by me (1pt min.). @ -None done CT interpreted by me (1pt min.). @ -None done U/S interpreted by me (1pt. min.). @ -None done What testing was considered but not performed or refused? (CT, X-rays, U/S, labs)? Why? @ -None What meds were considered but not given or refused? Why? @ -None Did you discuss the management of the patient with other professionals (professionals i.e. , PA, FLUTE TEACHER, lab, RT, psych nurse, secondary social studies teacher, plaster machine operator, teacher, chief security and safety officer, vocational case manager)? Give summary @ -I spoke with Dr. Castro he agreed admit the patient admit the patient wrote admitting orders Was smoking cessation discussed for >3mins.? @ -No Was critical care preformed (if so, how long)? @ -No Were there social determinants of health that impacted care today? How? (Homelessness, low income, unemployed, alcoholism, drug addiction, transportation, low edu. Level, literacy, decrease access to med. care, fci, rehab)? @ -No Was there de-escalation of care discussed even if they declined (Discuss DNR or withdrawal of care, Hospice)? DNR status @ -No What co-morbidities impacted this encounter? (DM, HTN, Smoking, COPD, CAD, Cancer, CVA, ARF, Chemo, Hep., AIDS, mental health diagnosis, sleep apnea, morbid obesity)? @ -None Was patient admitted / discharged? Hospital course, mention meds given and route, prescriptions, significant lab abnormalities, going to OR and other pertinent info. @ -The primary doctor was concerned that the antibiotics failed and the patient still had an infection I started the patient on Zosyn and Vanco. I admitted the patient to Dr. Castro and wrote admitting orders Undiagnosed new problem with uncertain prognosis? @ -No Drug Therapy requiring intensive monitoring for toxicity (Heparin, Nitro, Insulin, Cardizem)? @ -No Were any procedures done? @ -No Diagnosis/symptom? @ -Cellulitis Acute, or Chronic, or Acute on Chronic? @ -Acute on chronic Uncomplicated (without systemic symptoms) or Complicated (systemic symptoms)? @ -Complicated Side effects of treatment? @ -No Exacerbation, Progression, or Severe Exacerbation? @ -No Poses a threat to life or bodily function? How? (Chest pain, USA, LA, pneumonia, PE, COPD, DKA, ARF, appy, cholecystitis, CVA, Diverticulitis, Homicidal, Suicidal, threat to staff... and all critical care pts) @ -Yes this could lead to sepsis and endorgan dysfunction Diagnosis/symptom? @ -Peripheral edema Acute, or Chronic, or Acute on Chronic? @ -Acute Uncomplicated (without systemic symptoms) or Complicated (systemic symptoms)? @ -Complicated Side effects of treatment? @ -None Exacerbation, Progression, or Severe Exacerbation] @ -No Poses a threat to life or bodily function? @ -No - Lab Data Result diagrams: 09/19/23 12:54 09/19/23 12:54 Lab Results 09/19/23 09/19/23 09/19/23 Range/Units 12:54 12:54 12:54 WBC 10.1 (3.8-10.6) k/uL RBC 4.75 (3.80-5.40) m/uL Hgb 14.3 (11.4-16.0) gm/dL Hct 44.9 (34.0-46.0) % MCV 94.7 (80.0-100.0) fL MCH 30.1 (25.0-35.0) pg MCHC 31.7 (31.0-37.0) g/dL RDW 14.4 (11.5-15.5) % Plt Count 190 (150-450) k/uL MPV 9.4 Neutrophils % 68 % Lymphocytes % 17 % Monocytes % 9 % Eosinophils % 3 % Basophils % 1 % Neutrophils # 6.8 (1.3-7.7) k/uL Lymphocytes # 1.7 (1.0-4.8) k/uL Monocytes # 0.9 (0-1.0) k/uL Eosinophils # 0.4 (0-0.7) k/uL Basophils # 0.1 (0-0.2) k/uL PT 11.5 (10.0-12.5) sec INR 1.1 (<1.2) APTT 22.3 (22.0-30.0) sec Sodium 139 (137-145) mmol/L Potassium 4.9 (3.5-5.1) mmol/L Chloride 105 (98-107) mmol/L Carbon Dioxide 29 (22-30) mmol/L Anion Gap 5 mmol/L BUN 24 H (7-17) mg/dL Creatinine 0.60 (0.52-1.04) mg/dL Est GFR (CKD-EPI)AfAm >90 (>60 ml/min/1.73 sqM) Est GFR (CKD-EPI)NonAf 85 (>60 ml/min/1.73 sqM) Glucose 102 H (74-99) mg/dL Plasma Lactic Acid Onlan (0.7-2.0) mmol/L Calcium 9.3 (8.4-10.2) mg/dL Total Bilirubin 1.0 (0.2-1.3) mg/dL AST 38 H (14-36) U/L ALT 17 (4-34) U/L Alkaline Phosphatase 80 (38-126) U/L Total Protein 7.4 (6.3-8.2) g/dL Albumin 3.9 (3.5-5.0) g/dL 09/19/23 Range/Units 12:54 WBC (3.8-10.6) k/uL RBC (3.80-5.40) m/uL Hgb (11.4-16.0) gm/dL Hct (34.0-46.0) % MCV (80.0-100.0) fL MCH (25.0-35.0) pg MCHC (31.0-37.0) g/dL RDW (11.5-15.5) % Plt Count (150-450) k/uL MPV Neutrophils % % Lymphocytes % % Monocytes % % Eosinophils % % Basophils % % Neutrophils # (1.3-7.7) k/uL Lymphocytes # (1.0-4.8) k/uL Monocytes # (0-1.0) k/uL Eosinophils # (0-0.7) k/uL Basophils # (0-0.2) k/uL PT (10.0-12.5) sec INR (<1.2) APTT (22.0-30.0) sec Sodium (137-145) mmol/L Potassium (3.5-5.1) mmol/L Chloride (98-107) mmol/L Carbon Dioxide (22-30) mmol/L Anion Gap mmol/L BUN (7-17) mg/dL Creatinine (0.52-1.04) mg/dL Est GFR (CKD-EPI)AfAm (>60 ml/min/1.73 sqM) Est GFR (CKD-EPI)NonAf (>60 ml/min/1.73 sqM) Glucose (74-99) mg/dL Plasma Lactic Acid Nolan 1.4 (0.7-2.0) mmol/L Calcium (8.4-10.2) mg/dL Total Bilirubin (0.2-1.3) mg/dL AST (14-36) U/L ALT (4-34) U/L Alkaline Phosphatase (38-126) U/L Total Protein (6.3-8.2) g/dL Albumin (3.5-5.0) g/dL Disposition Clinical Impression: Peripheral edema, Acute cellulitis Disposition: ADMITTED IP TO THIS HOSP Referrals: Yahir Greene MD [Primary Care Provider] - 1-2 days Time of Disposition: 15:16
[2023-09-19] MEDS: PIPERACILLIN-TAZOBACTAM 3.375 GM in SODIUM CHLORIDE 0.9% 100 ML IVPB STA (13:01)
[2023-09-19] MEDS: KETOROLAC 15 MG/ML 1 ML VIAL IVP STA (13:03)
[2023-09-19 13:08] LABS: Basophils # (A) 0.1 k/uL (0-0.2); Basophils % (A) 1 %; Eosinophils # (A) 0.4 k/uL (0-0.7); Eosinophils % (A) 3 %; HCT 44.9 % (34.0-46.0); HGB 14.3 gm/dL (11.4-16.0); Lymphocytes # (A) 1.7 k/uL (1.0-4.8); Lymphocytes % (A) 17 %; MCH 30.1 pg (25.0-35.0); MCHC 31.7 g/dL (31.0-37.0); MCV 94.7 fL (80.0-100.0); Mean Platelet Volume 9.4; Monocytes # (A) 0.9 k/uL (0-1.0); Monocytes % (A) 9 %; Neutrophils # (A) 6.8 k/uL (1.3-7.7); Neutrophils % (A) 68 %; Platelet Count 190 k/uL (150-450); RBC 4.75 m/uL (3.80-5.40); RDW 14.4 % (11.5-15.5); WBC 10.1 k/uL (3.8-10.6)
[2023-09-19 13:20] LABS: INR 1.1 (<1.2); Partial Thromboplastin Time 22.3 sec (22.0-30.0); Prothrombin Time 11.5 sec (10.0-12.5)
[2023-09-19 13:24] LABS: ALT 17 U/L (4-34); African American GFR (CKD) >90 (>60 ml/min/1.73 sqM); Albumin 3.9 g/dL (3.5-5.0); Anion Gap 5 mmol/L; Blood Urea Nitrogen 24 mg/dL (7-17); Calcium 9.3 mg/dL (8.4-10.2); Carbon Dioxide 29 mmol/L (22-30); Chloride 105 mmol/L (98-107); Glucose 102 mg/dL (74-99); Non-African American GFR(CKD) 85 (>60 ml/min/1.73 sqM); Sodium 139 mmol/L (137-145); Total Protein 7.4 g/dL (6.3-8.2)
[2023-09-19 13:37] LABS: AST 38 U/L (14-36); Alkaline Phosphatase 80 U/L (38-126); Potassium 4.9 mmol/L (3.5-5.1)
[2023-09-19] MEDS: VANCOMYCIN 1,750 MG in SODIUM CHLORIDE 0.9% 500 ML 500 ML IVPB ONE (14:17)
[2023-09-19] MEDS: MELATONIN 3 MG TABLET PO SCH (20:42)
[2023-09-19] MEDS: PIPERACILLIN-TAZOBACTAM 3.375 GM in SODIUM CHLORIDE 0.9% 100 ML IVPB SCH (20:43)
[2023-09-20 05:12] LABS: African American GFR (CKD) 88 (>60 ml/min/1.73 sqM); Anion Gap 7 mmol/L; Blood Urea Nitrogen 23 mg/dL (7-17); Calcium 8.6 mg/dL (8.4-10.2); Carbon Dioxide 22 mmol/L (22-30); Chloride 107 mmol/L (98-107); Glucose 128 mg/dL (74-99); Non-African American GFR(CKD) 76 (>60 ml/min/1.73 sqM); Sodium 136 mmol/L (137-145)
[2023-09-20] MEDS: VANCOMYCIN 1,750 MG in SODIUM CHLORIDE 0.9% 500 ML 500 ML IVPB SCH (05:30)
[2023-09-20] MEDS: ATORVASTATIN 40 MG TAB PO SCH (08:10)
[2023-09-20] MEDS: atenoloL 50 MG TAB PO SCH (08:10)
[2023-09-20 12:19] LABS: Glucose,Whole Blood 105 mg/dL (70-110)
[2023-09-20] MEDS: ASPIRIN 81 MG PO SCH (13:08)
[2023-09-20] MEDS: HEPARIN SODIUM,PORCINE 5,000 UNIT/ML 1 ML VIAL SQ SCH (13:08)
[2023-09-20 16:51] LABS: Glucose,Whole Blood 96 mg/dL (70-110)
[2023-09-20] MEDS: HYDROcodone/APAP 5-325MG 1 EACH TAB PO PRN (17:22)
--- NOTE | 2023-09-20 22:56 | P.CONS ---
History of Present Illness - Reason for Consult Consult date: 09/20/23 - History of Present Illness Patient is a 83-year-old female with a past medical history significant for diabetes mellitus hypertension hyperlipidemia osteoarthritis dementia patient also have chronic lower extremity venous stasis and swelling and apparently has been treated with multiple courses of antibiotic for lower extremity cellulitis patient has been sent from PCP office concerning for bilateral lower extreme cellulitis failing outpatient therapy apparently the patient simply having increasing swelling as well as redness to bilateral lower extremity and has developed superficial ulceration to the bilateral posterior leg area patient has been complaining of pain to bilateral extremity to be sharp moderate intensity without radiation with associated swelling and redness and did have some drainage per the family patient on presentation to the hospital was afebrile and did have a low-grade fever of 99.3 F this morning patient was not tachycardic hypotensive or hypoxic and no need for supplemental oxygen white count was 10.1 creatinine 0.60 electrolyte has been normal liver enzymes are normal patient was started on vancomycin and Kiya infectious disease was consulted this morning for further management of her antibiotic therapy Past Medical History Past Medical History: Dementia, Diabetes Mellitus, Hyperlipidemia, Hypertension, Osteoarthritis (OA) Additional Past Medical History / Comment(s): Family states she is borderline diabetic. Takes no meds History of Any Multi-Drug Resistant Organisms: None Reported Past Surgical History: Adenoidectomy, Tonsillectomy Past Psychological History: No Psychological Hx Reported Smoking Status: Unknown if ever smoked Past Alcohol Use History: None Reported Past Drug Use History: None Reported Medications and Allergies Home Medications Medication Instructions Recorded Confirmed Type Aspirin EC [Ecotrin Low Dose] 81 mg PO DAILY 05/22/16 09/19/23 History Calcium Carbonate [Calcium] 600 mg PO DAILY 05/22/16 09/19/23 History Multivitamins, Thera [Multivitamin] 1 tab PO DAILY 05/22/16 09/19/23 History atenoloL 100 mg PO DAILY 05/22/16 09/19/23 History Levofloxacin [Levaquin] 500 mg PO DAILY #7 tab 05/23/16 09/19/23 Rx Atorvastatin [Lipitor] 40 mg PO DAILY 09/19/23 09/19/23 History Cefdinir [Omnicef] 300 mg PO BID 09/19/23 09/19/23 History Allergies Allergy/AdvReac Type Severity Reaction Status Date / Time No Known Allergies Allergy Verified 09/19/23 14:06 Physical Exam Vitals: Vital Signs Temp Pulse Pulse Resp BP BP Pulse Ox 09/20/23 13:55 98.1 F 71 18 125/67 97 09/20/23 06:50 99.3 F 77 22 97/51 91 L 09/20/23 01:23 98.9 F 76 18 133/69 95 09/19/23 20:00 97.4 F L 81 18 135/84 96 09/19/23 18:32 97.5 F L 61 18 149/83 97 09/19/23 16:54 98 F 72 18 161/86 97 Intake and Output 09/20/23 09/20/23 09/20/23 06:59 14:59 22:59 Other: # Voids 1 Results CBC & Chem 7: 09/19/23 12:54 09/21/23 03:13 Labs: Abnormal Lab Results - Last 24 Hours (Table) 09/20/23 Range/Units 04:28 Sodium 136 L (137-145) mmol/L BUN 23 H (7-17) mg/dL Glucose 128 H (74-99) mg/dL Assessment and Plan Plan: 1patient with bilateral lower extremity venous stasis superficial ulceration and cellulitis likely from gram-positive skin gurdeep failing outpatient oral antibiotic therapy clinic suspicion low for MRSA or gram-negative infection 2-we will discontinue vancomycin and Zosyn and recommendation will put the patient high risk of nephrotoxicity 3-start the patient cefazolin 2 g every 8 hours 4-dry Aquacel silver dressing to the open area followed by Vasyl wrap from just above the toe to below the knee change every 48 hours We will follow on clinical condition and cultures to further adjust medication if needed Thank you for this consultation we will follow the patient along with you Dictation was produced using [employer] dictation software. please excuse any grammatical, word or spelling errors. Time with Patient: Greater than 30
[2023-09-21] MEDS ORDERED: DEXTROSE 50% SYRINGE 50 ML IVP PRN ×2 (01:49)
--- NOTE | 2023-09-21 01:52 | P.HPIM ---
History of Present Illness H&P Date: 09/20/23 Chief Complaint: Nonhealing leg wounds Patient is a 83-year-old female with a past medical history of hypertension, hyperlipidemia, diabetes type 2 diet-controlled, dementia and osteoarthritis was sent from Dr. Greene's office due to nonhealing bilateral lower extremity wounds. Patient has been having lower extremity wounds mainly on the left lateral side of the leg. Patient has been having infection for the past 1 month. She was recently on Levaquin and also on Omnicef. Patient directed any fever or chills. No cough or sputum production. No chest pain or shortness of breath. Patient has chronic lower extremity swelling due to venous stasis and is mostly sitting in the couch at home. Laboratory pressure WBC 10.1 hemoglobin 14.3 and platelets 190 sodium 139 pot assium 4.9 chloride 105 bicarb is 29 BUN 24 and creatinine 0.6 and blood sugar 102 albumin 3.9 Patient was started on vancomycin and Zosyn. Review of Systems Constitutional: Patient denies any fever or chills . No generalized weakness or weight loss. Abdomen: Patient denied nausea vomiting and diarrhea and abdominal pain. Cardiovascular: Patient denies any chest pain or short of breath no palpitations. Respiratory: patient denied any cough is from production. No shortness of breath Neurologic: Patient denied any numbness or tingling headache. Musculoskeletal: Patient denies any complaints of joint swelling or deformity. Skin: Leg wounds Psychiatric: Negative Endocrine: No heat or cold intolerance. No recent weight gain. Genitourinary: No dysuria or hematuria. All other 14 point ROS negative except the above Past Medical History Past Medical History: Dementia, Diabetes Mellitus, Hyperlipidemia, Hypertension, Osteoarthritis (OA) Additional Past Medical History / Comment(s): Family states she is borderline diabetic. Takes no meds History of Any Multi-Drug Resistant Organisms: None Reported Past Surgical History: Adenoidectomy, Tonsillectomy Past Psychological History: No Psychological Hx Reported Smoking Status: Unknown if ever smoked Past Alcohol Use History: None Reported Past Drug Use History: None Reported Medications and Allergies Home Medications Medication Instructions Recorded Confirmed Type Aspirin EC [Ecotrin Low Dose] 81 mg PO DAILY 05/22/16 09/19/23 History Calcium Carbonate [Calcium] 600 mg PO DAILY 05/22/16 09/19/23 History Multivitamins, Thera [Multivitamin] 1 tab PO DAILY 05/22/16 09/19/23 History atenoloL 100 mg PO DAILY 05/22/16 09/19/23 History Levofloxacin [Levaquin] 500 mg PO DAILY #7 tab 05/23/16 09/19/23 Rx Atorvastatin [Lipitor] 40 mg PO DAILY 09/19/23 09/19/23 History Cefdinir [Omnicef] 300 mg PO BID 09/19/23 09/19/23 History Allergies Allergy/AdvReac Type Severity Reaction Status Date / Time No Known Allergies Allergy Verified 09/19/23 14:06 Physical Exam Vitals: Vital Signs Temp Pulse Pulse Resp BP BP Pulse Ox 09/20/23 06:50 99.3 F 77 22 97/51 91 L 09/20/23 01:23 98.9 F 76 18 133/69 95 09/19/23 20:00 97.4 F L 81 18 135/84 96 09/19/23 18:32 97.5 F L 61 18 149/83 97 09/19/23 16:54 98 F 72 18 161/86 97 09/19/23 14:32 98.1 F 70 18 150/89 97 09/19/23 12:29 98.1 F 72 18 152/79 97 Intake and Output 09/19/23 09/20/23 09/20/23 22:59 06:59 14:59 Other: Voiding Method Toilet Diaper # Voids 1 Weight 102.512 kg PHYSICAL EXAMINATION: Patient is lying in the bed comfortably, no acute distress, awake alert and vero ented.. HEENT: Normocephalic. Neck is supple. Pupils reactive. Nostrils clear. Oral cavity is moist. Neck reveals no JVD, carotid bruits, or thyromegaly. CHEST EXAMINATION: Trachea is central. Symmetrical expansion. Lung benton clear to auscultation and percussion. CARDIAC: Normal S1, S2 with no gallops. No murmurs ABDOMEN: Soft. Bowel sounds normal. No organomegaly. No abdominal bruits. Extremities: Bilateral lower extremity 2+ edema with ulcers over the lateral aspect of the leg left greater than right.. No clubbing or cyanosis Neurologically awake, alert, oriented x 1-2. Cognitive impairment. Able to move all extremities.. No gross focal deficits noted Skin: No rash or skin lesions. Psychiatric: Coperative. Nonsuicidal Musculoskeletal: No joint swelling or deformity. Normal range of motion. Results CBC & Chem 7: 09/19/23 12:54 09/20/23 04:28 Labs: Abnormal Lab Results - Last 24 Hours (Table) 09/19/23 09/20/23 Range/Units 12:54 04:28 Sodium 136 L (137-145) mmol/L BUN 24 H 23 H (7-17) mg/dL Glucose 102 H 128 H (74-99) mg/dL AST 38 H (14-36) U/L Thrombosis Risk Factor Assmnt - DVT/VTE Prophylaxis DVT/VTE Prophylaxis: Pharmacologic Prophylaxis ordered - Choose All That Apply Any of the Below Risk Factors Present?: Yes Each Factor Represents 1 point: Obesity (BMI >25) Each Risk Factor Represents 3 Points: Age 75 years or older Thrombosis Risk Factor Assessment Total Risk Factor Score: 4 Thrombosis Risk Factor Assessment Level: Moderate Risk Assessment and Plan Assessment: Bilateral lower extremity venous stasis ulcers and surrounding cellulitis involving mainly on the left lateral lower leg.. Failed outpatient antibiotic therapy. Chronic lower extremity swelling due to venous stasis Hypertension Hyperemia Borderline diabetes Osteoarthritis Dementia DVT prophylaxis with heparin subcu Morbid obesity BMI 41.3 Plan: Patient will be continued on antibiotics in the form of cefazolin. ID is on board. Patient was given vancomycin and Zosyn in the ER. Continue home medications and insulin sliding scale for blood sugar control. Continue with pain medications and follow-up closely. Discussed with her family at bedside in detail. ID is on board.
[2023-09-21 05:49] LABS: Glucose,Whole Blood 136 mg/dL (70-110)
[2023-09-21] MEDS ORDERED: VANCOMYCIN 1,750 MG in SODIUM CHLORIDE 0.9% 500 ML 500 ML IVPB SCH (06:00)
[2023-09-21] MEDS: INSULIN ASPART (NovoLOG) 100 UNIT/ML VIAL SQ SCH (06:06)
[2023-09-21 09:12] LABS: BUN/Creat Ratio 19.71 Ratio (12.00-20.00); Blood Urea Nitrogen 13.8 mg/dL (9.0-27.0); Calcium 8.3 mg/dL (8.7-10.3); Carbon Dioxide 21.5 mmol/L (21.6-31.8); Chloride 105 mmol/L (96-109); Glucose 146 mg/dL (70-110); Potassium 3.7 mmol/L (3.5-5.5); Sodium 138 mmol/L (135-145)
[2023-09-21] MEDS: MULTIVITAMINS, THERA 1 EACH TAB PO SCH (09:33)
[2023-09-21] MEDS: CALCIUM CARB-VIT D 500 MG-5 MCG TAB PO SCH (09:33)
[2023-09-21 11:55] LABS: Glucose,Whole Blood 147 mg/dL (70-110)
--- NOTE | 2023-09-21 16:08 | P.PN ---
Subjective Progress Note Date: 09/21/23 Principal diagnosis: Reason for follow-up is bilateral lower extremity ulcer and cellulitis Patient is a 83-year-old female with a past medical history significant for diabetes mellitus hypertension hyperlipidemia osteoarthritis dementia patient also have chronic lower extremity venous stasis and swelling and apparently has been treated with multiple courses of antibiotic for lower extremity cellulitis and sent to the hospital concerning for cellulitis failing outpatient therapy. On today's evaluation that is 09/21/2023,the patient denies any fever or any chills, patient is breathing comfortably on room air, the patient denies chest pain shortness of breath and no significant cough, patient denies abdominal pain, no nausea vomiting or diarrhea. Patient denies having any pain to bilateral lower extremity. Patient did have a creatinine 0.7 no CBC was done today blood cultures are pending Objective - Vital Signs Vital signs: Vital Signs Temp 99.0 F 09/21/23 09:32 Pulse 93 09/21/23 07:11 Resp 18 09/21/23 07:11 BP 135/77 09/21/23 07:11 Pulse Ox 92 L 09/21/23 09:32 FiO2 Intake & Output 09/20/23 09/21/23 09/21/23 18:59 06:59 18:59 Other: Voiding Method Toilet Toilet Diaper # Voids 4 1 - Exam GENERAL DESCRIPTION: An elderly female up in the chair in no distress RESPIRATORY SYSTEM: Unlabored breathing , decreased breath sounds at bases HEART: S1 S2 regular rate and rhythm , ABDOMEN: Soft , no tenderness EXTREMITIES: Bilateral legs are currently wrapped in Vasyl wrap no drainage - Labs CBC & Chem 7: 09/19/23 12:54 09/21/23 03:13 Labs: Abnormal Lab Results - Last 24 Hours (Table) 09/21/23 09/21/23 09/21/23 Range/Units 03:13 05:48 11:54 Carbon Dioxide 21.5 L (21.6-31.8) mmol/L Glucose 146 H (70-110) mg/dL POC Glucose (mg/dL) 136 H 147 H (70-110) mg/dL Calcium 8.3 L (8.7-10.3) mg/dL Microbiology - Last 24 Hours (Table) 09/19/23 12:54 Blood Culture - Preliminary Blood 09/19/23 12:54 Blood Culture - Preliminary Blood Assessment and Plan (1) Bilateral leg ulcer Current Visit: Yes Status: Acute Code(s): L97.919 - NON-PRS CHRONIC ULC UNSP PRT OF R LOW LEG W UNSP SEVERITY; L97.929 - NON-PRS CHRONIC ULC UNSP PRT OF L LOW LEG W UNSP SEVERITY SNOMED Code(s): 71728534 (2) Bilateral lower leg cellulitis Current Visit: Yes Status: Acute Code(s): L03.116 - CELLULITIS OF LEFT LOWER LIMB; L03.115 - CELLULITIS OF RIGHT LOWER LIMB SNOMED Code(s): 284057799 (3) Failure of outpatient treatment Current Visit: Yes Status: Acute Code(s): Z78.9 - OTHER SPECIFIED HEALTH STATUS SNOMED Code(s): 215146569 Plan: 1patient with bilateral lower extremity venous stasis superficial ulceration and cellulitis likely from gram-positive skin gurdeep failing outpatient oral antibiotic therapy clinic suspicion low for MRSA or gram-negative infection 2-local care to continue-dry Aquacel silver dressing to the open area followed by Vasyl wrap from just above the toe to below the knee change every 48 hours, we will reevaluate tomorrow 3continue with cefazolin daughter at the bedside questions were answered Dictation was produced using [employer] dictation software. please excuse any grammatical, word or spelling errors. Time with Patient: Less than 30
[2023-09-21 16:31] LABS: Glucose,Whole Blood 98 mg/dL (70-110)
[2023-09-21 19:36] LABS: Glucose,Whole Blood 151 mg/dL (70-110)
[2023-09-22] MEDS: ACETAMINOPHEN TAB 325 MG TAB PO PRN (05:22)
[2023-09-22 05:33] LABS: Glucose,Whole Blood 139 mg/dL (70-110)
--- NOTE | 2023-09-22 06:50 | P.PN ---
Subjective Progress Note Date: 09/21/23 Patient is a 83-year-old female with a past medical history of hypertension, hyperlipidemia, diabetes type 2 diet-controlled, dementia and osteoarthritis was sent from Dr. Greene's office due to nonhealing bilateral lower extremity wounds. Patient has been having lower extremity wounds mainly on the left lateral side of the leg. Patient has been having infection for the past 1 month. She was recently on Levaquin and also on Omnicef. Patient denies any fever or chills. No cough or sputum production. No chest pain or shortness of breath. Patient has chronic lower extremity swelling due to venous stasis and is mostly sitting in the couch at home. Laboratory pressure WBC 10.1 hemoglobin 14.3 and platelets 190 sodium 139 potassium 4.9 chloride 105 bicarb is 29 BUN 24 and creatinine 0.6 and blood sugar 102 albumin 3.9 Patient was started on vancomycin and Zosyn. 09/21/2023 Patient seen and evaluated in follow-up today being followed by infectious disease for lower extremity failure of outpatient treatment and continues to have significant chronic lower extremity swelling along with unhealing wounds. Patient does have history of dementia and family at the bedside with concerns of generalized weakness will have physical therapy evaluate the patient. Review of systems: Constitutional: No reports of fatigue, fever, or chills Cardiovascular: No reports of chest pain or palpitations Respiratory: No reports of shortness of breath or cough GI: No reports of nausea, vomiting, or diarrhea : No reports of dysuria or retention Neurovascular: reports of weakness, denies any leg pain All medications have been reviewed PHYSICAL EXAMINATION: Patient is sitting up in the chair, awake alert and oriented x 1-2 baseline. Elderly appearing, ill-appearing, morbidly obese. HEENT: Normocephalic. Neck is supple. Pupils reactive. Nostrils clear. Oral cavity is moist. Neck reveals no JVD, carotid bruits, or thyromegaly. CHEST EXAMINATION: Trachea is central. Symmetrical expansion. Lung benton clear to auscultation and percussion. CARDIAC: Normal S1, S2 with no gallops. No murmurs ABDOMEN: Soft. Bowel sounds normal. No organomegaly. No abdominal bruits. Extremities: Bilateral lower extremity 2+ edema with ulcers over the lateral aspect of the leg left greater than right.. No clubbing or cyanosis Neurologically awake, alert, oriented x 1-2. Cognitive impairment. Able to mo ve all extremities.. No gross focal deficits noted Skin: No rash or skin lesions. Psychiatric: Cooperative. Non-suicidal Musculoskeletal: No joint swelling or deformity. Normal range of motion. Assessment: Bilateral lower extremity venous stasis ulcers and surrounding cellulitis involving mainly on the left lateral lower leg.. Failed outpatient antibiotic therapy. Chronic lower extremity swelling due to venous stasis Hypertension Hyperemia Borderline diabetes Osteoarthritis Dementia DVT prophylaxis with heparin subcu Morbid obesity BMI 41.3 GI prophylaxis DVT prophylaxis Full code Plan: Patient will be continued on antibiotics in the form of cefazolin. Infectious disease following and patient did receive a dose of vancomycin and Zosyn in the ER. Awaiting cultures to finalize to determine discharge antibiotics. Home medications reviewed and resumed as appropriate Continue monitoring Accu-Cheks ACHS and will continue current insulin regimen Will have PT/OT therapy evaluate the patient Will discuss further with infectious disease about wound care recommendations and close outpatient follow-up Due to multiple complex medical issues, prognosis is guarded The impression and plan of care has been dictated by Evelyne Hazel, Nurse Practitioner as directed. Dr. Matthew MD I have performed a history and examination and MDM of this patient, discussed the same with the dictator, and agree with the dictator's assessment and plan as written ,documented as a scribe. Based on total visit time, I have performed more than 50% of the visit. Objective - Vital Signs Vital signs: Vital Signs Temp 99.5 F 09/22/23 00:47 Pulse 88 09/22/23 00:47 Resp 15 09/22/23 00:47 BP 163/69 09/22/23 00:47 Pulse Ox 90 L 09/22/23 00:47 FiO2 Intake & Output 09/21/23 09/21/23 09/22/23 06:59 18:59 06:59 Output Total 1 Balance -1 Output: Stool 1 Other: Voiding Method Toilet Toilet Toilet Diaper # Voids 1 3 1 - Labs CBC & Chem 7: 09/19/23 12:54 09/21/23 03:13 Labs: Abnormal Lab Results - Last 24 Hours (Table) 09/21/23 09/21/23 09/21/23 Range/Units 03:13 11:54 19:35 Carbon Dioxide 21.5 L (21.6-31.8) mmol/L Glucose 146 H (70-110) mg/dL POC Glucose (mg/dL) 147 H 151 H (70-110) mg/dL Calcium 8.3 L (8.7-10.3) mg/dL 09/22/23 Range/Units 05:31 Carbon Dioxide (21.6-31.8) mmol/L Glucose (70-110) mg/dL POC Glucose (mg/dL) 139 H (70-110) mg/dL Calcium (8.7-10.3) mg/dL Microbiology - Last 24 Hours (Table) 09/19/23 12:54 Blood Culture - Preliminary Blood 09/19/23 12:54 Blood Culture - Preliminary Blood
[2023-09-22 10:45] LABS: Basophils # (A) 0.07 X 10*3/uL (0.00-0.10); Basophils % (A) 0.5 %; Eosinophils # (A) 0.14 X 10*3/uL (0.04-0.35); Eosinophils % (A) 1.1 %; HCT 39.2 % (37.2-46.3); HGB 12.9 g/dL (12.0-15.0); Lymphocytes # (A) 1.14 X 10*3/uL (0.90-5.00); Lymphocytes % (A) 8.6 %; MCH 30.5 pg (27.0-32.0); MCHC 32.9 g/dL (32.0-37.0); MCV 92.7 FL (80.0-97.0); Mean Platelet Volume 12.5 FL (9.5-12.2); Monocytes # (A) 1.26 X 10*3/uL (0.20-1.00); Monocytes % (A) 9.5 %; NRBC Per 100 WBC 0 X 10*3/uL (0.00-0.01); Neutrophils # (A) 10.59 X 10*3/uL (1.80-7.70); Neutrophils % (A) 79.9 %; Platelet Count 170 X 10*3/uL (140-440); RBC 4.23 X 10*6/uL (4.10-5.20); RDW 15.1 % (11.5-14.5); WBC 13.25 X 10*3/uL (4.50-10.00)
[2023-09-22 11:04] LABS: ALT 9 U/L (8-44); AST 17 U/L (13-35); Albumin 3.4 g/dL (3.8-4.9); Albumin/Globulin Ratio 1.42 Ratio (1.60-3.17); Alkaline Phosphatase 78 U/L (41-126); BUN/Creat Ratio 17.14 Ratio (12.00-20.00); Calcium 8.3 mg/dL (8.7-10.3); Carbon Dioxide 24.7 mmol/L (21.6-31.8); Chloride 100 mmol/L (96-109); Globulin 2.4 g/dL (1.6-3.3); Glucose 150 mg/dL (70-110); Magnesium 1.7 mg/dL (1.5-2.4); Potassium 3.6 mmol/L (3.5-5.5); Sodium 135 mmol/L (135-145); Total Bilirubin 0.6 mg/dL (0.3-1.2); Total Protein 5.8 g/dL (6.2-8.2)
[2023-09-22 11:06] LABS: Glucose,Whole Blood 146 mg/dL (70-110)
--- NOTE | 2023-09-22 13:13 | P.PN ---
Subjective Progress Note Date: 09/22/23 Principal diagnosis: Reason for follow-up is bilateral lower extremity ulcer and cellulitis Patient is a 83-year-old female with a past medical history significant for diabetes mellitus hypertension hyperlipidemia osteoarthritis dementia patient also have chronic lower extremity venous stasis and swelling and apparently has been treated with multiple courses of antibiotic for lower extremity cellulitis and sent to the hospital concerning for cellulitis failing outpatient therapy. On today's evaluation that is 09/22/2023,the patient remains to be afebrile, patient is on room air not requiring supplemental oxygen and denies any shortness of breath no chest pain or cough.Patient denies having any nausea or vomiting, no abdominal pain and no diarrhea denies pain to bilateral lower extremity swelling slightly decreased. Patient white count 13.5, creatinine 0.7 blood cultures are pending Objective - Vital Signs Vital signs: Vital Signs Temp 98.7 F 09/22/23 07:37 Pulse 93 09/22/23 08:00 Resp 18 09/22/23 08:00 BP 145/78 09/22/23 07:37 Pulse Ox 92 L 09/22/23 08:51 FiO2 Intake & Output 09/21/23 09/22/23 09/22/23 18:59 06:59 18:59 Output Total 1 Balance -1 Output: Stool 1 Other: Voiding Method Toilet Toilet Toilet # Voids 3 1 - Exam GENERAL DESCRIPTION: An elderly female up in the chair in no distress RESPIRATORY SYSTEM: Unlabored breathing , decreased breath sounds at bases HEART: S1 S2 regular rate and rhythm , ABDOMEN: Soft , no tenderness EXTREMITIES: Right lower extremity dressing was opened overall swelling and maceration has improved redness has decreased no drainage - Labs CBC & Chem 7: 09/22/23 06:02 09/22/23 06:02 Labs: Abnormal Lab Results - Last 24 Hours (Table) 09/19/23 09/21/23 09/22/23 Range/Units 12:54 19:35 05:31 WBC (4.50-10.00) X 10*3/uL RDW (11.5-14.5) % MPV (9.5-12.2) FL Immature Gran # (0.00-0.04) X 10*3/uL Neutrophils # (1.80-7.70) X 10*3/uL Monocytes # (0.20-1.00) X 10*3/uL Glucose (70-110) mg/dL POC Glucose (mg/dL) 151 H 139 H (70-110) mg/dL Hemoglobin A1c 6.5 H (<=6.0) % Calcium (8.7-10.3) mg/dL Total Protein (6.2-8.2) g/dL Albumin (3.8-4.9) g/dL Albumin/Globulin Ratio (1.60-3.17) Ratio 09/22/23 09/22/23 09/22/23 Range/Units 06:02 06:02 11:03 WBC 13.25 H (4.50-10.00) X 10*3/uL RDW 15.1 H (11.5-14.5) % MPV 12.5 H (9.5-12.2) FL Immature Gran # 0.05 H (0.00-0.04) X 10*3/uL Neutrophils # 10.59 H (1.80-7.70) X 10*3/uL Monocytes # 1.26 H (0.20-1.00) X 10*3/uL Glucose 150 H (70-110) mg/dL POC Glucose (mg/dL) 146 H (70-110) mg/dL Hemoglobin A1c (<=6.0) % Calcium 8.3 L (8.7-10.3) mg/dL Total Protein 5.8 L (6.2-8.2) g/dL Albumin 3.4 L (3.8-4.9) g/dL Albumin/Globulin Ratio 1.42 L (1.60-3.17) Ratio Microbiology - Last 24 Hours (Table) 09/19/23 12:54 Blood Culture - Preliminary Blood 09/19/23 12:54 Blood Culture - Preliminary Blood Assessment and Plan (1) Bilateral leg ulcer Current Visit: Yes Status: Acute Code(s): L97.919 - NON-PRS CHRONIC ULC UNSP PRT OF R LOW LEG W UNSP SEVERITY; L97.929 - NON-PRS CHRONIC ULC UNSP PRT OF L LOW LEG W UNSP SEVERITY SNOMED Code(s): 52293968 (2) Bilateral lower leg cellulitis Current Visit: Yes Status: Acute Code(s): L03.116 - CELLULITIS OF LEFT LOWER LIMB; L03.115 - CELLULITIS OF RIGHT LOWER LIMB SNOMED Code(s): 022552492 (3) Failure of outpatient treatment Current Visit: Yes Status: Acute Code(s): Z78.9 - OTHER SPECIFIED HEALTH STATUS SNOMED Code(s): 701048565 Plan: 1patient with bilateral lower extremity venous stasis superficial ulceration and cellulitis likely from gram-positive skin gurdeep failing outpatient oral antibiotic therapy clinic suspicion low for MRSA or gram-negative infection 2-local care to continue-dry Aquacel silver dressing to the open area followed by Vasyl wrap from just above the toe to below the knee change every 48 hours 3patient is currently being treated with cefazolin to continue while inpatient will be transition to oral antibiotic on discharge daughter at the bedside multiple question answered Dictation was produced using [employer] dictation software. please excuse any grammatical, word or spelling errors. Time with Patient: Less than 30
[2023-09-22 16:12] LABS: Glucose,Whole Blood 119 mg/dL (70-110)
[2023-09-22 20:55] LABS: Glucose,Whole Blood 114 mg/dL (70-110)
[2023-09-23 05:58] LABS: Glucose,Whole Blood 129 mg/dL (70-110)
--- NOTE | 2023-09-23 06:26 | P.PN ---
Subjective Progress Note Date: 09/22/23 Patient is a 83-year-old female with a past medical history of hypertension, hyperlipidemia, diabetes type 2 diet-controlled, dementia and osteoarthritis was sent from Dr. Greene's office due to nonhealing bilateral lower extremity wounds. Patient has been having lower extremity wounds mainly on the left lateral side of the leg. Patient has been having infection for the past 1 month. She was recently on Levaquin and also on Omnicef. Patient denies any fever or chills. No cough or sputum production. No chest pain or shortness of breath. Patient has chronic lower extremity swelling due to venous stasis and is mostly sitting in the couch at home. Laboratory pressure WBC 10.1 hemoglobin 14.3 and platelets 190 sodium 139 potassium 4.9 chloride 105 bicarb is 29 BUN 24 and creatinine 0.6 and blood sugar 102 albumin 3.9 Patient was started on vancomycin and Zosyn. 09/21/2023 Patient seen and evaluated in follow-up today being followed by infectious disease for lower extremity failure of outpatient treatment and continues to have significant chronic lower extremity swelling along with unhealing wounds. Patient does have history of dementia and family at the bedside with concerns of generalized weakness will have physical therapy evaluate the patient. 09/22/2023 Patient is seen in follow-up today with infectious disease following maintained on cefazolin and continued wound care. Patient continues with Vasyl wraps to bilateral lower extremities continues to have significant swelling although feels slightly improved. Continue with local wound care per ID and will discuss wound care in the outpatient setting. Patient to be evaluated by physical therapy as patient is at increased risk for falls and generalized weakness. Patient is currently afebrile denies any chest pain or shortness of breath. Patient has been tolerating diet with no reported nausea or vomiting. Review of systems: Constitutional: No reports of fatigue, fever, or chills Cardiovascular: No reports of chest pain or palpitations Respiratory: No reports of shortness of breath or cough GI: No reports of nausea, vomiting, or diarrhea : No reports of dysuria or retention Neurovascular: reports of weakness, denies any leg pain All medications have been reviewed PHYSICAL EXAMINATION: Patient is sitting up in the chair, awake alert and oriented x 1-2 baseline. Elderly appearing, ill-appearing, morbidly obese. HEENT: Normocephalic. Neck is supple. Pupils reactive. Nostrils clear. Oral cavity is moist. Neck reveals no JVD, carotid bruits, or thyromegaly. CHEST EXAMINATION: Trachea is central. Symmetrical expansion. Lung benton clear to auscultation and percussion. CARDIAC: S1, S2 are muffled ABDOMEN: Soft. Obese. Bowel sounds normal. No organomegaly. No abdominal bruits. Extremities: Bilateral lower extremity 2+ edema with ulcers over the lateral aspect of the leg left greater than right.. No clubbing or cyanosis Neurologically awake, alert, oriented x 1-2. Cognitive impairment. Able to move all extremities.. No gross focal deficits noted, diffusely weak Skin: No rash or skin lesions. Other than mentioned above Psychiatric: Cooperative. Non-suicidal Musculoskeletal: No joint swelling or deformity. Normal range of motion. Assessment: Bilateral lower extremity venous stasis ulcers and surrounding cellulitis involving mainly on the left lateral lower leg.. Failed outpatient antibiotic therapy. Chronic lower extremity swelling due to venous stasis Hypertension Hyperemia Borderline diabetes Osteoarthritis Dementia Morbid obesity BMI 41.3 GI prophylaxis DVT prophylaxis with heparin subcu Full code Plan: Patient will be continued on antibiotics in the form of cefazolin. Infectious disease following and patient will likely transition to oral Keflex. Awaiting finalized cultures Home medications reviewed and resumed as appropriate Continue monitoring Accu-Cheks ACHS and will continue current insulin regimen Awaiting PT/OT therapy evaluation. Family reports patient was up and walking. Will discuss further with infectious disease about wound care recommendations and close outpatient follow-up Due to multiple complex medical issues, prognosis is guarded Possible discharge in the next 24 to 48 hours The impression and plan of care has been dictated by Evelyne Hazel, Nurse Practitioner as directed. Dr. Ja MD I have performed a history and examination and MDM of this patient, discussed the same with the dictator, and agree with the dictator's assessment and plan as written ,documented as a scribe. Based on total visit time, I have performed more than 50% of the visit. Objective - Vital Signs Vital signs: Vital Signs Temp 99.1 F 09/23/23 01:18 Pulse 94 09/23/23 01:18 Resp 14 09/23/23 01:18 BP 161/89 09/23/23 01:18 Pulse Ox 90 L 09/23/23 01:18 FiO2 Intake & Output 05/03/0709/22/23 09/23/23 06:59 18:59 06:59 Intake Total 600 Balance 600 Intake: Intake, IV Titration 50 Amount ceFAZolin 2 gm In Sodium 50 Chloride 0.9% 50 ml @ 100 mls/hr IVPB Q8HR [facility] Rx# :[id number] Oral 550 Other: Voiding Method Toilet Toilet Toilet # Voids 1 3 - Labs CBC & Chem 7: 09/22/23 06:02 09/22/23 06:02 Labs: Abnormal Lab Results - Last 24 Hours (Table) 09/19/23 09/22/23 09/22/23 Range/Units 12:54 06:02 06:02 WBC 13.25 H (4.50-10.00) X 10*3/uL RDW 15.1 H (11.5-14.5) % MPV 12.5 H (9.5-12.2) FL Immature Gran # 0.05 H (0.00-0.04) X 10*3/uL Neutrophils # 10.59 H (1.80-7.70) X 10*3/uL Monocytes # 1.26 H (0.20-1.00) X 10*3/uL Glucose 150 H (70-110) mg/dL POC Glucose (mg/dL) (70-110) mg/dL Hemoglobin A1c 6.5 H (<=6.0) % Calcium 8.3 L (8.7-10.3) mg/dL Total Protein 5.8 L (6.2-8.2) g/dL Albumin 3.4 L (3.8-4.9) g/dL Albumin/Globulin Ratio 1.42 L (1.60-3.17) Ratio 09/22/23 09/22/23 09/22/23 Range/Units 11:03 16:10 20:53 WBC (4.50-10.00) X 10*3/uL RDW (11.5-14.5) % MPV (9.5-12.2) FL Immature Gran # (0.00-0.04) X 10*3/uL Neutrophils # (1.80-7.70) X 10*3/uL Monocytes # (0.20-1.00) X 10*3/uL Glucose (70-110) mg/dL POC Glucose (mg/dL) 146 H 119 H 114 H (70-110) mg/dL Hemoglobin A1c (<=6.0) % Calcium (8.7-10.3) mg/dL Total Protein (6.2-8.2) g/dL Albumin (3.8-4.9) g/dL Albumin/Globulin Ratio (1.60-3.17) Ratio 09/23/23 Range/Units 05:57 WBC (4.50-10.00) X 10*3/uL RDW (11.5-14.5) % MPV (9.5-12.2) FL Immature Gran # (0.00-0.04) X 10*3/uL Neutrophils # (1.80-7.70) X 10*3/uL Monocytes # (0.20-1.00) X 10*3/uL Glucose (70-110) mg/dL POC Glucose (mg/dL) 129 H (70-110) mg/dL Hemoglobin A1c (<=6.0) % Calcium (8.7-10.3) mg/dL Total Protein (6.2-8.2) g/dL Albumin (3.8-4.9) g/dL Albumin/Globulin Ratio (1.60-3.17) Ratio Microbiology - Last 24 Hours (Table) 09/19/23 12:54 Blood Culture - Preliminary Blood 09/19/23 12:54 Blood Culture - Preliminary Blood
[2023-09-23 07:51] LABS: Basophils % (A) 0 %; Eosinophils # (A) 0.2 k/uL (0-0.7); Eosinophils % (A) 2 %; HCT 42.5 % (34.0-46.0); HGB 13.6 gm/dL (11.4-16.0); Lymphocytes % (A) 9 %; MCH 30.4 pg (25.0-35.0); MCHC 32.1 g/dL (31.0-37.0); MCV 94.9 fL (80.0-100.0); Monocytes # (A) 0.8 k/uL (0-1.0); Monocytes % (A) 8 %; Neutrophils # (A) 8.9 k/uL (1.3-7.7); Neutrophils % (A) 80 %; Platelet Count 181 k/uL (150-450); RBC 4.47 m/uL (3.80-5.40); RDW 14.2 % (11.5-15.5); WBC 11.1 k/uL (3.8-10.6)
[2023-09-23 08:19] LABS: African American GFR (CKD) >90 (>60 ml/min/1.73 sqM); Anion Gap 7 mmol/L; Blood Urea Nitrogen 15 mg/dL (7-17); Calcium 8.3 mg/dL (8.4-10.2); Carbon Dioxide 26 mmol/L (22-30); Chloride 103 mmol/L (98-107); Glucose 137 mg/dL (74-99); Magnesium 1.6 mg/dL (1.6-2.3); Non-African American GFR(CKD) 88 (>60 ml/min/1.73 sqM); Potassium 3.6 mmol/L (3.5-5.1); Sodium 136 mmol/L (137-145)
[2023-09-23 11:53] LABS: Glucose,Whole Blood 113 mg/dL (70-110)
[2023-09-23 16:12] LABS: Glucose,Whole Blood 114 mg/dL (70-110)
--- NOTE | 2023-09-23 19:11 | PN ---
PROGRESS NOTE DATE OF SERVICE: 09/23/2023 SUBJECTIVE: This is an 83-year-old woman, who was admitted with bilateral lower extremity cellulitis, also is extremely weak at this time. No chest pain. No palpitation. PT/OT are evaluating the patient. PHYSICAL EXAMINATION: VITAL SIGNS: Pulse is 94, blood pressure 161/89, and respirations 14. CHEST: Clear to auscultation. ABDOMEN: Soft. EXTREMITIES: Cellulitis present. Diffusely weak. LABORATORY DATA: Reviewed. ASSESSMENT: 1. Bilateral lower extremity venous statis ulcer with surrounding cellulitis. 2. Chronic lower extremity swelling and weakness. 3. Hypertension. 4. Diabetes mellitus type 2. 5. Degenerative joint disease. 6. Dementia. RECOMMENDATIONS: Recommend to continue current management, continue symptomatic treatment otherwise. At this time, I would recommend follow with multiple consultants, PT/OT evaluation, possible ECF rehab. Guarded prognosis. Further recommendations to follow. MMALMA DELIAL / IJN: [id number] /
--- NOTE | 2023-09-23 21:00 | P.PN ---
Subjective Progress Note Date: 09/23/23 Principal diagnosis: Reason for follow-up is bilateral lower extremity ulcer and cellulitis Patient is a 83-year-old female with a past medical history significant for diabetes mellitus hypertension hyperlipidemia osteoarthritis dementia patient also have chronic lower extremity venous stasis and swelling and apparently has been treated with multiple courses of antibiotic for lower extremity cellulitis and sent to the hospital concerning for cellulitis failing outpatient therapy. On today's evaluation that is 09/23/2023, the patient continues to be afebrile, the patient is on room air and breathing comfortably, the Pt denies having any chest pain or cough, the patient denies having any abdominal pain no vomiting or any diarrhea has been reported by the nursing staff denies any pain to the bilateral lower extremity. Patient white count is 11.1 creatinine is 0.55 Objective - Vital Signs Vital signs: Vital Signs Temp 98.6 F 09/23/23 08:26 Pulse 87 09/23/23 08:26 Resp 18 09/23/23 08:26 BP 133/93 09/23/23 08:26 Pulse Ox 91 L 09/23/23 08:26 FiO2 Intake & Output 09/22/23 09/23/23 09/23/23 18:59 06:59 18:59 Intake Total 600 Balance 600 Intake: Intake, IV Titration 50 Amount ceFAZolin 2 gm In Sodium 50 Chloride 0.9% 50 ml @ 100 mls/hr IVPB Q8HR [facility] Rx# :[id number] Oral 550 Other: Voiding Method Toilet Toilet # Voids 3 2 - Exam GENERAL DESCRIPTION: An elderly female up in the chair in no distress RESPIRATORY SYSTEM: Unlabored breathing , decreased breath sounds at bases HEART: S1 S2 regular rate and rhythm , ABDOMEN: Soft , no tenderness EXTREMITIES: Bilateral extremity currently wrapped in Vasyl wrap no drainage - Labs CBC & Chem 7: 09/23/23 06:37 09/23/23 06:37 Labs: Abnormal Lab Results - Last 24 Hours (Table) 09/22/23 09/22/23 09/22/23 Range/Units 06:02 06:02 11:03 WBC 13.25 H (4.50-10.00) X 10*3/uL RDW 15.1 H (11.5-14.5) % MPV 12.5 H (9.5-12.2) FL Immature Gran # 0.05 H (0.00-0.04) X 10*3/uL Neutrophils # 10.59 H (1.80-7.70) X 10*3/uL Monocytes # 1.26 H (0.20-1.00) X 10*3/uL Sodium (137-145) mmol/L Glucose 150 H (70-110) mg/dL POC Glucose (mg/dL) 146 H (70-110) mg/dL Calcium 8.3 L (8.7-10.3) mg/dL Total Protein 5.8 L (6.2-8.2) g/dL Albumin 3.4 L (3.8-4.9) g/dL Albumin/Globulin Ratio 1.42 L (1.60-3.17) Ratio 09/22/23 09/22/23 09/23/23 Range/Units 16:10 20:53 05:57 WBC (4.50-10.00) X 10*3/uL RDW (11.5-14.5) % MPV (9.5-12.2) FL Immature Gran # (0.00-0.04) X 10*3/uL Neutrophils # (1.80-7.70) X 10*3/uL Monocytes # (0.20-1.00) X 10*3/uL Sodium (137-145) mmol/L Glucose (70-110) mg/dL POC Glucose (mg/dL) 119 H 114 H 129 H (70-110) mg/dL Calcium (8.7-10.3) mg/dL Total Protein (6.2-8.2) g/dL Albumin (3.8-4.9) g/dL Albumin/Globulin Ratio (1.60-3.17) Ratio 09/23/23 09/23/23 Range/Units 06:37 06:37 WBC 11.1 H (4.50-10.00) X 10*3/uL RDW (11.5-14.5) % MPV (9.5-12.2) FL Immature Gran # (0.00-0.04) X 10*3/uL Neutrophils # 8.9 H (1.80-7.70) X 10*3/uL Monocytes # (0.20-1.00) X 10*3/uL Sodium 136 L (137-145) mmol/L Glucose 137 H (70-110) mg/dL POC Glucose (mg/dL) (70-110) mg/dL Calcium 8.3 L (8.7-10.3) mg/dL Total Protein (6.2-8.2) g/dL Albumin (3.8-4.9) g/dL Albumin/Globulin Ratio (1.60-3.17) Ratio Microbiology - Last 24 Hours (Table) 09/19/23 12:54 Blood Culture - Preliminary Blood 09/19/23 12:54 Blood Culture - Preliminary Blood Assessment and Plan (1) Bilateral leg ulcer Current Visit: Yes Status: Acute Code(s): L97.919 - NON-PRS CHRONIC ULC UNSP PRT OF R LOW LEG W UNSP SEVERITY; L97.929 - NON-PRS CHRONIC ULC UNSP PRT OF L LOW LEG W UNSP SEVERITY SNOMED Code(s): 15215371 (2) Bilateral lower leg cellulitis Current Visit: Yes Status: Acute Code(s): L03.116 - CELLULITIS OF LEFT LOWER LIMB; L03.115 - CELLULITIS OF RIGHT LOWER LIMB SNOMED Code(s): 714453692 (3) Failure of outpatient treatment Current Visit: Yes Status: Acute Code(s): Z78.9 - OTHER SPECIFIED HEALTH STATUS SNOMED Code(s): 737487560 Plan: 1patient with bilateral lower extremity venous stasis superficial ulceration and cellulitis likely from gram-positive skin gurdeep failing outpatient oral antibiotic therapy clinic suspicion low for MRSA or gram-negative infection 2-local care to continue-dry Aquacel silver dressing to the open area followed by Vasyl wrap from just above the toe to below the knee change every 48 hours 3patient white count did come down to 11.1 continue with the cefazolin while inpatient along with Vasyl wrap and monitor clinical course closely Dictation was produced using [employer] dictation software. please excuse any grammatical, word or spelling errors. Time with Patient: Less than 30
[2023-09-23 21:34] LABS: Glucose,Whole Blood 113 mg/dL (70-110)
[2023-09-24 06:21] LABS: Glucose,Whole Blood 118 mg/dL (70-110)
[2023-09-24 11:08] LABS: HCT 38.2 % (37.2-46.3); HGB 12.7 g/dL (12.0-15.0); MCH 30.3 pg (27.0-32.0); MCHC 33.2 g/dL (32.0-37.0); MCV 91.2 FL (80.0-97.0); Mean Platelet Volume 11.6 FL (9.5-12.2); NRBC Per 100 WBC 0 X 10*3/uL (0.00-0.01); Platelet Count 209 X 10*3/uL (140-440); RBC 4.19 X 10*6/uL (4.10-5.20); RDW 15.1 % (11.5-14.5); WBC 9.98 X 10*3/uL (4.50-10.00)
[2023-09-24 11:09] LABS: Glucose,Whole Blood 110 mg/dL (70-110)
[2023-09-24 11:09] LABS: Basophils # (A) 0.07 X 10*3/uL (0.00-0.10); Basophils % (A) 0.7 %; Eosinophils # (A) 0.33 X 10*3/uL (0.04-0.35); Eosinophils % (A) 3.3 %; Monocytes # (A) 1.12 X 10*3/uL (0.20-1.00); Monocytes % (A) 11.2 %; Neutrophils # (A) 6.72 X 10*3/uL (1.80-7.70); Neutrophils % (A) 67.4 %
[2023-09-24 11:26] LABS: BUN/Creat Ratio 19.83 Ratio (12.00-20.00); Blood Urea Nitrogen 11.9 mg/dL (9.0-27.0); Calcium 8.4 mg/dL (8.7-10.3); Carbon Dioxide 25.5 mmol/L (21.6-31.8); Chloride 101 mmol/L (96-109); Glucose 124 mg/dL (70-110); Potassium 3.5 mmol/L (3.5-5.5); Sodium 138 mmol/L (135-145)
[2023-09-24 16:12] LABS: Glucose,Whole Blood 102 mg/dL (70-110)
[2023-09-24] MEDS: THIAMINE 100 MG TAB PO SCH (17:51)
[2023-09-24] MEDS: FOLIC ACID 1 MG TAB PO SCH (17:51)
[2023-09-24 21:43] LABS: Glucose,Whole Blood 103 mg/dL (70-110)
[2023-09-24] MEDS: QUEtiapine 25 MG TAB PO SCH (21:51)
--- NOTE | 2023-09-24 22:38 | PN ---
PROGRESS NOTE DATE OF SERVICE: 09/24/2023 This 83-year-old woman was admitted with bilateral lower extremity venous stasis ulcer and surrounding cellulitis, mildly confused today. The patient had possibly acute delirium. The patient is closely monitored. The patient was not able to sleep. Chest x-ray is not available. PAST MEDICAL HISTORY: Reviewed. REVIEW OF SYSTEMS: A 14-point review of systems is negative except as mentioned earlier. MEDICATIONS: Home medications reviewed. The current medications reviewed, include Narcan. PHYSICAL EXAMINATION: VITAL SIGNS: Pulse is 77, blood pressure 102/63, respirations 18. HEENT: Conjunctivae normal. NECK: No JVD. CARDIOVASCULAR: S1, S2. RESPIRATIONS: Breath sounds diminished at the bases. ABDOMEN: Soft and nontender. LEGS: No edema, no swelling. NERVOUS SYSTEM: Diffusely weak. LABORATORY DATA: Hemoglobin 12.7, rest of the labs are noted. ASSESSMENT: 1. Bilateral lower extremity venous stasis ulcer and surrounding cellulitis. 2. Acute delirium, change in mental status, metabolic encephalopathy. 3. Chronic lower extremity swelling and weakness. 4. Hypertension. 5. Diabetes mellitus, type 2. 6. Gait dysfunction. 7. Degenerative joint disease. 8. Dementia. RECOMMENDATIONS: Recommend to continue current management and treatment. I would recommend a small dose of Risperdal and continue to monitor. See orders for details. Supplement vitamins. Further recommendations to follow. MMODL / IJN: [id number] /
[2023-09-25 05:55] LABS: Glucose,Whole Blood 105 mg/dL (70-110)
[2023-09-25 09:06] LABS: Basophils # (A) 0.07 X 10*3/uL (0.00-0.10); Basophils % (A) 0.7 %; Eosinophils # (A) 0.34 X 10*3/uL (0.04-0.35); Eosinophils % (A) 3.3 %; HCT 37.2 % (37.2-46.3); HGB 12.6 g/dL (12.0-15.0); Lymphocytes # (A) 1.89 X 10*3/uL (0.90-5.00); Lymphocytes % (A) 18.1 %; MCH 30.4 pg (27.0-32.0); MCHC 33.9 g/dL (32.0-37.0); MCV 89.6 FL (80.0-97.0); Mean Platelet Volume 11.5 FL (9.5-12.2); Monocytes # (A) 1.12 X 10*3/uL (0.20-1.00); Monocytes % (A) 10.7 %; NRBC Per 100 WBC 0 X 10*3/uL (0.00-0.01); Neutrophils # (A) 6.97 X 10*3/uL (1.80-7.70); Neutrophils % (A) 66.8 %; Platelet Count 204 X 10*3/uL (140-440); RBC 4.15 X 10*6/uL (4.10-5.20); RDW 15.2 % (11.5-14.5); WBC 10.43 X 10*3/uL (4.50-10.00)
[2023-09-25 09:13] LABS: Blood Urea Nitrogen 12.3 mg/dL (9.0-27.0); Calcium 8.6 mg/dL (8.7-10.3); Carbon Dioxide 22.6 mmol/L (21.6-31.8); Chloride 105 mmol/L (96-109); Glucose 113 mg/dL (70-110); Potassium 3.4 mmol/L (3.5-5.5); Sodium 139 mmol/L (135-145)
[2023-09-25 11:36] LABS: Glucose,Whole Blood 140 mg/dL (70-110)
--- NOTE | 2023-09-25 12:09 | P.DS ---
Providers Date of admission: 09/19/23 15:19 Expected date of discharge: 09/25/23 Attending physician: Lemuel Castro Consults: 09/20/23 11:57 Consult Physician Stat Consulting Provider: Le Nino Consult Reason/Comments: cellulits Do you want consulting provider notified?: Yes Primary care physician: Yahir Greene Hospital Course: Final diagnosis Bilateral lower extremity venous stasis ulcers and surrounding cellulitis involving mainly on the left lateral lower leg.. Failed outpatient antibiotic therapy. Chronic lower extremity swelling due to venous stasis Hypertension Hyperemia Borderline diabetes Osteoarthritis Dementia Morbid obesity BMI 41.3 GI prophylaxis DVT prophylaxis with heparin subcu Full code Discharge disposition Patient is being discharged in a stable condition with guarded prognosis to home with home care . Patient will follow-up with Dr. Greene in the outpatient setting upon discharge. Patient is to continue with antibiotics with close outpatient follow-up with infectious disease and wound care as scheduled. Total time taken is greater than 35 minutes. Hospital course This is a 83-year-old female who was recently admitted with lower extremity swelling with concerns of cellulitis and nonhealing wounds with failure of outpatient treatment. Patient evaluated by infectious disease started on IV cefazolin and continued on wound care with Vasyl wraps and elevating of the lower extremities. Cultures are negative and patient will continue on oral Keflex with close outpatient follow-up with wound care as well as home care being arranged. Patient was evaluated by physical therapy doing well with plans on going home. Family at the bedside questions and concerns were answered to the best of my ability. Please refer to consultation notes for further HPI. Currently no reports of chest pain, shortness of breath, or palpitations. Patient is afebrile. No reports of nausea or vomiting and patient is tolerating diet. Patient will be discharged home today. Guarded prognosis. Physical exam: Gen: This is a 83-year-old female who is awake, alert and oriented x 2, baseline, well-developed, elderly appearing, morbidly obese HEENT: Head is atraumatic, normocephalic. Pupils equal, round. Sclerae is anicteric. NECK: Supple. No JVD. No lymphadenopathy. No thyromegaly. LUNGS: Diminished breath sounds bilaterally otherwise clear to auscultation. No wheezes or rhonchi. No intercostal retractions. HEART: S1, S2 are muffled ABDOMEN: Soft. Obese bowel sounds are present. No masses. No tenderness. EXTREMITIES: No pedal edema. No calf tenderness. Bilateral lower extremity swelling, showing some improvement NEUROLOGICAL: Patient is awake, alert and oriented x2. cranial nerves 2 through 12 are grossly intact. Please refer to medication reconciliation sheet for a list of medications. The impression and plan of care has been dictated by Evelyne Hazel, Nurse Practitioner as directed. Dr. Ja MD I have performed a history and examination and MDM of this patient, discussed the same with the dictator, and agree with the dictator's assessment and plan as written ,documented as a scribe. Based on total visit time, I have performed more than 50% of the visit. Patient Condition at Discharge: Stable Plan - Discharge Summary Discharge Rx Participant: Yes New Discharge Prescriptions: New Folic Acid 1 mg PO DAILY@1200 #30 tab Cephalexin [Keflex] 500 mg PO Q8HR 10 Days #30 cap Acetaminophen Tab [Tylenol] 650 mg PO Q6HR PRN tab PRN Reason: Fever And/ Or Pain Thiamine [Vitamin B-1] 100 mg PO DAILY@1200 #30 tab Continue Aspirin EC [Ecotrin Low Dose] 81 mg PO DAILY atenoloL 100 mg PO DAILY Multivitamins, Thera [Multivitamin (formulary)] 1 tab PO DAILY Calcium Carbonate [Calcium] 600 mg PO DAILY Atorvastatin [Lipitor] 40 mg PO DAILY Discontinued Levofloxacin [Levaquin] 500 mg PO DAILY #7 tab Cefdinir [Omnicef] 300 mg PO BID Discharge Medication List Aspirin EC [Ecotrin Low Dose] 81 mg PO DAILY 05/22/16 [History] Calcium Carbonate [Calcium] 600 mg PO DAILY 05/22/16 [History] Multivitamins, Thera [Multivitamin (formulary)] 1 tab PO DAILY 05/22/16 [History] atenoloL 100 mg PO DAILY 05/22/16 [History] Atorvastatin [Lipitor] 40 mg PO DAILY 09/19/23 [History] Acetaminophen Tab [Tylenol] 650 mg PO Q6HR PRN tab 09/25/23 [Rx] Cephalexin [Keflex] 500 mg PO Q8HR 10 Days #30 cap 09/25/23 [Rx] Folic Acid 1 mg PO DAILY@1200 #30 tab 09/25/23 [Rx] Thiamine [Vitamin B-1] 100 mg PO DAILY@1200 #30 tab 09/25/23 [Rx] Follow up Appointment(s)/Referral(s): Yahir Greene MD [Primary Care Provider] - 1-2 days Le Nino MD [STAFF PHYSICIAN] - 1 Week [facility] Vis[facility] Nurse, [NON-STAFF] - As Needed Activity/Diet/Wound Care/Special Instructions: Activity limited until follow-up Follow-up with primary care provider on discharge Follow-up with infectious disease outpatient Continue taking medications as prescribed Continue antibiotics until finished Elevate lower extremities while at rest Continue wound care with dry Aquacel silver dressing to the open area and then followed by an Vasyl wrap and continue with the Vasyl wrap's from the toes up to the knees with changes every 48 hours or if becoming soiled Discharge Disposition: HOME WITH HOME HEALTH SERVICES
[2023-09-25] MEDS ORDERED: Potassium Replacement Protocol 1 EACH MISC MISCELLANE PRN (12:14)
[2023-09-25] MEDS: POTASSIUM CHLORIDE ER 20 MEQ TAB.ER PO SCH (13:06)
[2023-09-25 14:16] VITALS: BP 138/69; PULSE 81; RESP 19; TEMP 98.7
== END 2023-09-25 15:19 | disposition home health service (06) | DRG 299 ==
LOC: EC 12:25 → 4SSUR 15:19
PROVIDERS: ADMIT Internal Medicine; ATTEND Internal Medicine
PROC: 05HF33Z Insertion of Infusion Device into Left Cephalic Vein, Percutaneous Approach (ICD-10-PCS; principal; 2023-09-22 10:30)
DX: I83.028 Varicose veins of left lower extremity with ulcer other part of lower leg (principal); G93.41 Metabolic encephalopathy; L03.116 Cellulitis of left lower limb; L03.115 Cellulitis of right lower limb; L97.919 Non-pressure chronic ulcer of unspecified part of right lower leg with unspecified severity; L97.929 Non-pressure chronic ulcer of unspecified part of left lower leg with unspecified severity; L97.818 Non-pressure chronic ulcer of other part of right lower leg with other specified severity; Z68.41 Body mass index [BMI] 40.0-44.9, adult; F05 Delirium due to known physiological condition; I83.018 Varicose veins of right lower extremity with ulcer other part of lower leg; R53.1 Weakness; E66.01 Morbid (severe) obesity due to excess calories; I87.8 Other specified disorders of veins; E78.5 Hyperlipidemia, unspecified; F03.90 Unspecified dementia, unspecified severity, without behavioral disturbance, psychotic disturbance, mood disturbance, and anxiety; I10 Essential (primary) hypertension; M19.90 Unspecified osteoarthritis, unspecified site; I89.0 Lymphedema, not elsewhere classified; R73.03 Prediabetes; Z79.4 Long term (current) use of insulin; Z79.82 Long term (current) use of aspirin; Z79.899 Other long term (current) drug therapy; Z91.81 History of falling
CPT/HCPCS: 36410; 36415; 76937; 80048; 80053; 83036; 83605; 83735; 84443; 85025; 85610; 85730; 87040; 93005; 94760; 96365; 96366; 96367; 96375; 99285

== ENCOUNTER 2024-05-03 14:37 | Inpatient (IN) | payer MEDICARE ==
--- NOTE | 2024-05-03 16:31 | ED ---
Skin/Abscess/FB HPI - General Chief complaint: Skin/Abscess/Foreign Body Stated complaint: bilateral leg swelling/pain/pt has dementia Time Seen by Provider: 05/03/24 15:12 Source: patient, family, RN notes reviewed Mode of arrival: wheelchair Limitations: altered mental status, physical limitation - History of Present Illness Initial comments: This is a 84-year-old female presents emergency department with family for evaluation of bilateral leg swelling redness and drainage. He states has been getting worse worsening redness possible infection. Patient denies any specific complaints but patient has severe dementia of family states that his legs are so swollen she is not able to ambulate anymore. She has not any current treatment. No history of CHF. - Related Data Home Medications Medication Instructions Recorded Confirmed Aspirin EC [Ecotrin Low Dose] 81 mg PO DAILY 05/22/16 09/19/23 Calcium Carbonate [Calcium] 600 mg PO DAILY 05/22/16 09/19/23 Multivitamins, Thera [Multivitamin 1 tab PO DAILY 05/22/16 09/19/23 (formulary)] atenoloL 100 mg PO DAILY 05/22/16 09/19/23 Atorvastatin [Lipitor] 40 mg PO DAILY 09/19/23 09/19/23 Previous Rx's Medication Instructions Recorded Acetaminophen Tab [Tylenol] 650 mg PO Q6HR PRN tab 09/25/23 Cephalexin [Keflex] 500 mg PO Q8HR 10 Days #30 cap 09/25/23 Folic Acid 1 mg PO DAILY@1200 #30 tab 09/25/23 Thiamine [Vitamin B-1] 100 mg PO DAILY@1200 #30 tab 09/25/23 Allergies Allergy/AdvReac Type Severity Reaction Status Date / Time No Known Allergies Allergy Verified 05/03/24 15:02 Review of Systems ROS Statement: Those systems with pertinent positive or pertinent negative responses have been documented in the HPI. ROS Other: All systems not noted in ROS Statement are negative. Past Medical History Past Medical History: Dementia, Diabetes Mellitus, Hyperlipidemia, Hypertension, Osteoarthritis (OA) Additional Past Medical History / Comment(s): Family states she is borderline diabetic. Takes no meds History of Any Multi-Drug Resistant Organisms: None Reported Past Surgical History: Adenoidectomy, Tonsillectomy Past Psychological History: No Psychological Hx Reported Smoking Status: Never smoker Past Alcohol Use History: None Reported Past Drug Use History: None Reported General Exam Limitations: altered mental status, physical limitation General appearance: alert, in no apparent distress Neck exam: Present: normal inspection, full ROM. Absent: tenderness, meningismus, lymphadenopathy Respiratory exam: Present: normal lung sounds bilaterally. Absent: respiratory distress, wheezes, rales, rhonchi, stridor Cardiovascular Exam: Present: regular rate, normal rhythm, normal heart sounds. Absent: systolic murmur, diastolic murmur, rubs, gallop, clicks Extremities exam: Present: other (Bilateral lower extremity significant edema, drainage noted, pulses are faint bilaterally, significant erythema) Course Vital Signs 05/03/24 15:03 Temperature 98.9 F Pulse Rate 76 Respiratory 20 Rate Blood Pressure 144/69 O2 Sat by Pulse 100 Oximetry Medical Decision Making - Medical Decision Making Was pt. sent in by a medical professional or institution (, PA, DECISION SCIENCE ANALYST, urgent care, hospital, or fpc...) When possible be specific @ -No Did you speak to anyone other than the patient for history (EMS, parent, family, police, friend...)? What history was obtained from this source @ -No Did you review nursing and triage notes (agree or disagree)? Why? @ -I reviewed and agree with nursing and triage notes Were old charts reviewed (outside hosp., previous admission, EMS record, old EKG, old radiological studies, urgent care reports/EKG's, fpc records)? Report findings @ -No old charts were reviewed Differential Diagnosis (chest pain, altered mental status, abdominal pain women, abdominal pain men, vaginal bleeding, weakness, fever, dyspnea, syncope, headache, dizziness, GI bleed, back pain, seizure, CVA, palpatations, mental health, musculoskeletal)? @ -Cellulitis, leg edema, differential Weakness: Hypoglycemia, shock, sepsis, hyponatremia, anemia, infection, ID, ETOH, adverse medicine reaction, overdose, stroke, this is not meant to be an all-inclusive list. EKG interpreted by me (3pts min.). @ -None X-rays interpreted by me (1pt min.). @ -None done CT interpreted by me (1pt min.). @ -None done U/S interpreted by me (1pt. min.). @ -None done What testing was considered but not performed or refused? (CT, X-rays, U/S, labs)? Why? @ -None What meds were considered but not given or refused? Why? @ -None Did you discuss the management of the patient with other professionals (professionals i.e. , PA, DECISION SCIENCE ANALYST, lab, RT, psych nurse, social service director, supervisor cd area, teacher, training and development officer, caseworker intake)? Give summary @ -EMH for admission Was smoking cessation discussed for >3mins.? @ -No Was critical care preformed (if so, how long)? @ -No Were there social determinants of health that impacted care today? How? (Homelessness, low income, unemployed, alcoholism, drug addiction, transportation, low edu. Level, literacy, decrease access to med. care, fpc, rehab)? @ -No Was there de-escalation of care discussed even if they declined (Discuss DNR or withdrawal of care, Hospice)? DNR status @ -No What co-morbidities impacted this encounter? (DM, HTN, Smoking, COPD, CAD, Cancer, CVA, ARF, Chemo, Hep., AIDS, mental health diagnosis, sleep apnea, morbid obesity)? @ -Dementia Was patient admitted / discharged? Hospital course, mention meds given and route, prescriptions, significant lab abnormalities, going to OR and other pertinent info. @ -Admitted patient has evidence of bilateral cellulitis leg edema increasing weakness. Patient be admitted for IV antibiotics, possible placement, physical therapy Undiagnosed new problem with uncertain prognosis? @ -No Drug Therapy requiring intensive monitoring for toxicity (Heparin, Nitro, Insulin, Cardizem)? @ -No Were any procedures done? @ -No Diagnosis/symptom? @ -Weakness leg edema, cellulitis Acute, or Chronic, or Acute on Chronic? @ -Acute Uncomplicated (without systemic symptoms) or Complicated (systemic symptoms)? @ -Complicated Side effects of treatment? @ -No Exacerbation, Progression, or Severe Exacerbation? @ -No Poses a threat to life or bodily function? How? (Chest pain, USA, ID, pneumonia, PE, COPD, DKA, ARF, appy, cholecystitis, CVA, Diverticulitis, Homicidal, Suicidal, threat to staff... and all critical care pts) @ -No - Lab Data Result diagrams: 05/03/24 16:37 05/03/24 16:37 Lab Results 05/03/24 05/03/24 05/03/24 Range/Units 16:37 16:37 16:37 WBC 12.0 H (3.8-10.6) k/uL RBC 4.77 (3.80-5.40) m/uL Hgb 14.4 (11.4-16.0) gm/dL Hct 43.7 (34.0-46.0) % MCV 91.7 (80.0-100.0) fL MCH 30.2 (25.0-35.0) pg MCHC 33.0 (31.0-37.0) g/dL RDW 13.9 (11.5-15.5) % Plt Count 201 (150-450) k/uL MPV 8.6 Neutrophils % 75 % Lymphocytes % 13 % Monocytes % 8 % Eosinophils % 1 % Basophils % 1 % Neutrophils # 9.1 H (1.3-7.7) k/uL Lymphocytes # 1.6 (1.0-4.8) k/uL Monocytes # 0.9 (0-1.0) k/uL Eosinophils # 0.2 (0-0.7) k/uL Basophils # 0.1 (0-0.2) k/uL Sodium 135 L (137-145) mmol/L Potassium 4.5 (3.5-5.1) mmol/L Chloride 101 (98-107) mmol/L Carbon Dioxide 27 (22-30) mmol/L Anion Gap 7 mmol/L BUN 25 H (7-17) mg/dL Creatinine 0.57 (0.52-1.04) mg/dL Est GFR (CKD-EPI)AfAm >90 (>60 ml/min/1.73 sqM) Est GFR (CKD-EPI)NonAf 86 (>60 ml/min/1.73 sqM) Glucose 118 H (74-99) mg/dL Plasma Lactic Acid Nolan 1.6 (0.7-2.0) mmol/L Calcium 9.5 (8.4-10.2) mg/dL Magnesium 1.7 (1.6-2.3) mg/dL Total Bilirubin 0.9 (0.2-1.3) mg/dL AST 45 H (14-36) U/L ALT 23 (4-34) U/L Alkaline Phosphatase 107 (38-126) U/L NT-Pro-B Natriuret Pep 404 pg/mL Total Protein 7.2 (6.3-8.2) g/dL Albumin 4.0 (3.5-5.0) g/dL Disposition Clinical Impression: Bilateral lower leg cellulitis, Peripheral edema Disposition: ADMITTED IP TO THIS HOSP Condition: Fair Referrals: Yahir Greene MD [Primary Care Provider] - 1-2 days Time of Disposition: 18:02
[2024-05-03 16:52] LABS: Basophils # (A) 0.1 k/uL (0-0.2); Basophils % (A) 1 %; Eosinophils # (A) 0.2 k/uL (0-0.7); Eosinophils % (A) 1 %; HCT 43.7 % (34.0-46.0); HGB 14.4 gm/dL (11.4-16.0); Lymphocytes # (A) 1.6 k/uL (1.0-4.8); Lymphocytes % (A) 13 %; MCH 30.2 pg (25.0-35.0); MCV 91.7 fL (80.0-100.0); Mean Platelet Volume 8.6; Monocytes # (A) 0.9 k/uL (0-1.0); Monocytes % (A) 8 %; Neutrophils # (A) 9.1 k/uL (1.3-7.7); Neutrophils % (A) 75 %; Platelet Count 201 k/uL (150-450); RBC 4.77 m/uL (3.80-5.40); RDW 13.9 % (11.5-15.5)
[2024-05-03 17:17] LABS: ALT 23 U/L (4-34); African American GFR (CKD) >90 (>60 ml/min/1.73 sqM); Anion Gap 7 mmol/L; Blood Urea Nitrogen 25 mg/dL (7-17); Calcium 9.5 mg/dL (8.4-10.2); Carbon Dioxide 27 mmol/L (22-30); Chloride 101 mmol/L (98-107); Glucose 118 mg/dL (74-99); Non-African American GFR(CKD) 86 (>60 ml/min/1.73 sqM); Sodium 135 mmol/L (137-145); Total Bilirubin 0.9 mg/dL (0.2-1.3); Total Protein 7.2 g/dL (6.3-8.2)
[2024-05-03 17:22] LABS: AST 45 U/L (14-36); Alkaline Phosphatase 107 U/L (38-126); Magnesium 1.7 mg/dL (1.6-2.3); Potassium 4.5 mmol/L (3.5-5.1)
[2024-05-03 17:25] LABS: NT-Pro-B-Type Natriuretic Pept 404 pg/mL
[2024-05-03] MEDS ORDERED: VANCOMYCIN IV PER PHARMACY 1 EACH MISC MISCELLANE PRN (17:34)
[2024-05-03] MEDS ORDERED: NALOXONE 0.4 MG/ML 1 ML VIAL IV PRN (18:02)
[2024-05-03] MEDS: LORazepam 2 MG/ML INJ IV STA (18:38)
[2024-05-03] MEDS: VANCOMYCIN 1,500 MG in SODIUM CHLORIDE 0.9% 500 ML 500 ML IVPB STA (19:31)
[2024-05-03 22:36] LABS: Appearance,Urine Clear (Clear); Bilirubin,Urine Negative (Negative); Blood,Urine Negative (Negative); Color,Urine Yellow; Glucose,Urine (UA) Negative (Negative); Ketones,Urine Negative (Negative); Leukocyte Esterase,Urine Negative (Negative); Nitrite,Urine Negative (Negative); Protein,Urine Negative (Negative); Specific Gravity,Urine 1.024 (1.001-1.035); Urobilinogen,Urine <2.0 mg/dL (<2.0)
[2024-05-04] MEDS: ACETAMINOPHEN TAB 325 MG TAB PO PRN (01:45)
[2024-05-04] MEDS: VANCOMYCIN 1,500 MG in SODIUM CHLORIDE 0.9% 500 ML 500 ML IVPB SCH (10:26)
--- NOTE | 2024-05-04 10:54 | XR ---
EXAMINATION TYPE: XR chest 1V portable DATE OF EXAM: 05/04/2024 10:28 AM COMPARISON: Chest radiographs from 06/02/2023 CLINICAL INDICATION: Female, 84 years old with history of possible chf; TECHNIQUE: XR chest 1V portable Frontal view of the chest. FINDINGS: Lungs/Pleura: There is no evidence of pleural effusion, focal consolidation, or pneumothorax. Pulmonary vascularity: Pulmonary vascular congestion. Heart/mediastinum: Cardiomediastinal silhouette is enlarged. Musculoskeletal: No acute osseous pathology. Other findings: None IMPRESSION: Cardiomegaly and mild pulmonary vascular congestion. Correlate with BNP for congestive heart failure. [facility], , 05/04/2024 10:52 AM
[2024-05-04] MEDS: FUROSEMIDE 10 MG/ML 4 ML VIAL IV SCH (13:13)
[2024-05-04] MEDS: ENOXAPARIN 40 MG/0.4 ML SYRINGE SQ SCH (13:14)
--- NOTE | 2024-05-04 16:46 | CT ---
EXAMINATION TYPE: CT lumbar spine wo con DATE OF EXAM: 05/04/2024 2:20 PM COMPARISON: None available.. CLINICAL INDICATION: Female, 84 years old with history of back pain; [facility], TECHNIQUE: Multiple axial images were obtained from the midportion of T11 through the sacroiliac scott nts. Soft tissue and bone windows in coronal and sagittal planes were obtained and reviewed. 3-D ref ormats of the bones were created on a separate workstation and submitted for review. Automated exposure control for dose reduction was used. FINDINGS: Alignment: There are 5 lumbar type vertebral bodies within normal alignment. Partially visualized cardiomegaly and trace bilateral pleural effusions. Noninfected bilateral renal calculi. Cholelithiasis. Colonic diverticulosis. Anterior abdominal wall hernia containing nonobstruc flora bowel loops partially visualized. Calcified atherosclerotic disease of the abdominal aorta. Severely limited study due to extensive motion artifact and streak artifact from body habitus. No acu te fracture or traumatic subluxation. Osseous structures demineralized. Multilevel intervertebral dis c space loss and injury osteophyte formation. No definite spondylolysis or significant spondylolisthe sis. Essentially nondiagnostic evaluation of the spinal canal. Facet arthropathy and posterior disc p rotrusions cause varying degrees of neural foraminal narrowing at multiple levels, also not well eval uated due to motion artifact. IMPRESSION: * Severely limited study due to extensive motion artifact. * No acute fracture or traumatic subluxation of the lumbosacral spine. * Multilevel lumbosacral spine degenerative changes. Findings could be better evaluated with outpati ent MRI if clinically warranted. * Partially visualized heart is mainly and trace bilateral pleural effusions. * Bilateral nonobstructing renal calculi. * Cholelithiasis. * Partially visualized anterior abdominal wall hernia containing fat and nonobstructed bowel loops. [facility], , 05/04/2024 4:43 PM
--- NOTE | 2024-05-04 16:49 | CA ---
Transthoracic Echo Report Name: Marika Corral Age: 84 Gender: F : 1940 Exam Date: 05/04/2024 10:59 Exam Location: [place] [facility] Ht (in): 60 Wt (lb): 185 Ordering Physician: Davi Booker MD Attending/Referring Phys: Ladies Attendant Shelly Reza RDCS Procedure CPT: Indications: LE Edema Cardiac Hx: Technical Quality: Fair Contrast 1: Total Dose (mL): Contrast 2: Total Dose (mL): MEASUREMENTS (Male / Female) Normal Values 2D ECHO LV Diastolic Diameter PLAX 3.4 cm 4.2 - 5.9 / 3.9 - 5.3 cm LV Systolic Diameter PLAX 2.5 cm IVS Diastolic Thickness 1.3 cm 0.6 - 1.0 / 0.6 - 0.9 cm LVPW Diastolic Thickness 1.2 cm 0.6 - 1.0 / 0.6 - 0.9 cm LV Relative Wall Thickness 0.7 RV Internal Dim ED PLAX 2.8 cm LVOT Diameter 1.6 cm M-MODE Aortic Root Diameter MM 2.6 cm LA Systolic Diameter MM 4.7 cm LA Ao Ratio MM 1.8 AV Cusp Separation MM 0.0 cm DOPPLER AV Peak Velocity 153.8 cm/s AV Peak Gradient 9.5 mmHg AV Mean Velocity 100.7 cm/s AV Mean Gradient 4.9 mmHg AV Velocity Time Integral 34.4 cm LVOT Peak Velocity 127.2 cm/s LVOT Peak Gradient 6.5 mmHg LVOT Velocity Time Integral 32.4 cm LVOT Stroke Volume 62.7 cm??? LVOT Stroke Volume Index 34.7 ml/m??? LVOT Cardiac Index 2666.3 cm???/min???m??? AV Area Cont Eq vti 1.8 cm??? AV Area Cont Eq pk 1.6 cm??? MV Peak Velocity 133.5 cm/s MV Peak Gradient 7.1 mmHg MV Mean Velocity 104.8 cm/s MV Mean Gradient 4.8 mmHg MV Velocity Time Integral 25.1 cm Mitral E Point Velocity 118.7 cm/s Mitral A Point Velocity 127.9 cm/s Mitral E to A Ratio 0.9 MV Deceleration Time 180.9 ms MV E' Velocity 5.6 cm/s Mitral E to MV E' Ratio 21.3 FINDINGS Left Ventricle Mildly increased left ventricular wall thickness. Left ventricular cavity size normal. Normal left ventricular systolic function with no obvious regional wall motion abnormalities. Left ventricular ejection fraction is estimated at 55 %. Grade 1 diastolic dysfunction. Right Ventricle Normal right ventricular size and function. Right Atrium Right atrial dilatation. Left Atrium Severe left atrial dilatation. Mitral Valve Structurally normal mitral valve. Moderate thickening/calcification of the posterior mitral valve leaflet. Mild mitral annular calcification. Minimal mitral stenosis. Aortic Valve Trileaflet aortic valve. No aortic valve stenosis or regurgitation. Aortic valve sclerosis. Tricuspid Valve Structurally normal tricuspid valve. Mild tricuspid regurgitation. Pulmonic Valve Structurally normal pulmonic valve. Pericardium No pericardial effusion. Aorta Normal size aortic root and proximal ascending aorta. CONCLUSIONS LVEF 55% mild LVH No regional wall motion abnormality Mitral annular calcification with mild mitral stenosis Aortic valve sclerosis, no significant stenosis Normal RV size and function Previewed by: Dr Rainer Cruz (Electronically Signed) Final Date: 04 May 2024 16:49
[2024-05-04] MEDS: atenoloL 50 MG TAB PO SCH (17:15)
--- NOTE | 2024-05-04 17:15 | P.HPIM ---
History of Present Illness H&P Date: 05/04/24 History of present illness; Patient is an 84-year-old female with hypertension, diabetes, severe dementia presenting with bilateral lower extremity swelling with wound. Patient with dementia and poor historian. Spoke with daughter over phone who states that over the last few weeks her mother has become increasingly weak with 2 falls, last being yesterday when she got up off toilet and fell onto her chest and abdomen. She does have history of lower extremity cellulitis. She is increasingly tired when walking short distances. She also attest to sleeping on recliner for years. And she has previously been seen by cardiology associates, for stated abnormal echo. Currently patient unable to answer questions however noted to be in distress when turning and examining lower extremities. Labs done in ER significant for WBC 12, neutrophils 9.1, sodium 135, BUN 25, creatinine 0.57, glucose 187, proBNP 404, UA is unremarkable. Spoke with the ER physician, patient admission was accepted by internal medicine service for treatment. REVIEW OF SYSTEMS: Unable to obtain due to mental status. PHYSICAL EXAMINATION: Vitals reviewed GENERAL: No acute distress. Well developed, well nourished. HEENT: Pupils are round and equally reacting to light. EOMI. No scleral icterus. Normocephalic, atraumatic. CARDIOVASCULAR: S1 and S2 present. No murmurs, rubs, or gallops. PULMONARY: Chest is clear to auscultation, no wheezing, rhonchi, or crackles. ABDOMEN: Soft, nontender, nondistended, normoactive bowel sounds. No palpable organomegaly. MUSCULOSKELETAL: No apparent joint swelling and deformities. EXTREMITIES: No apparent cyanosis, clubbing, or 2+ pedal edema. NEUROLOGICAL: The patient is alert and oriented x1, Gross neurological examination did not reveal any focal deficits. SKIN: Bilateral lower extremity ulcerated and weeping wounds, surrounding erythema, no pus noted Assessment and plan Patient is an 84-year-old female with hypertension, diabetes, dementia presenting with bilateral lower extremity swelling with wound. #Cellulitis due to chronic venous insufficiency of bilateral lower limbs #Lower extremity edema -blood culture pending -Begin cefazolin 2gm q8hr One-time dose IV Lasix 40 mg -consult wound care ID consulted # Lumbar back pain # Mechanical fall #Lower extremity weakness CT lumbar spine findings of no acute fracture, lumbosacral degenerative mijares ges, trace pleural effusion PT OT consulted #Pleural effusion, small bilateral Chest x-ray with pulmonary vascular congestion Echocardiogram finding of EF 55%, mild LVH - proBNP 404 One-time dose IV Lasix 40 mg as above Resume home medication Chronic Medical Conditions #Diabetes mellitus, type 2 Diet controlled, no home medication #Hyperlidemia - Resume home medication F: P.o. E: Replete as needed N: Regular diet DVT ppx: Subq Lovenox 40 meq daily Code status: Full code Anticipated discharge place: Home Anticipated discharge time: 1 to 2 days Dictation was produced using [email or web address] dictation software. Please excuse any grammatical, word or spelling errors. Past Medical History Past Medical History: Dementia, Diabetes Mellitus, Hyperlipidemia, Hypertension, Osteoarthritis (OA) Additional Past Medical History / Comment(s): Family states she is borderline diabetic. Takes no meds History of Any Multi-Drug Resistant Organisms: None Reported Past Surgical History: Adenoidectomy, Tonsillectomy Smoking Status: Never smoker Medications and Allergies Home Medications Medication Instructions Recorded Confirmed Type atenoloL 100 mg PO DAILY 05/22/16 05/04/24 History Atorvastatin [Lipitor] 40 mg PO DAILY 09/19/23 05/04/24 History Allergies Allergy/AdvReac Type Severity Reaction Status Date / Time No Known Allergies Allergy Verified 05/04/24 12:37 Physical Exam Vitals: Vital Signs Temp Pulse Pulse Resp BP Pulse Ox 05/04/24 01:36 98.3 F 99 18 95 05/04/24 00:53 98.1 F 109 H 20 92/66 92 L 05/03/24 22:19 91 16 141/74 95 05/03/24 19:59 91 16 135/77 96 05/03/24 19:32 99.5 F 05/03/24 15:03 98.9 F 76 20 144/69 100 Intake and Output 05/03/24 05/04/24 05/04/24 22:59 06:59 14:59 Other: Voiding Method Incontinent Weight 83.915 kg 83.915 kg Results CBC & Chem 7: 05/03/24 16:37 05/03/24 16:37 Labs: Abnormal Lab Results - Last 24 Hours (Table) 05/03/24 05/03/24 Range/Units 16:37 16:37 WBC 12.0 H (3.8-10.6) k/uL Neutrophils # 9.1 H (1.3-7.7) k/uL Sodium 135 L (137-145) mmol/L BUN 25 H (7-17) mg/dL Glucose 118 H (74-99) mg/dL AST 45 H (14-36) U/L Thrombosis Risk Factor Assmnt - Choose All That Apply Any of the Below Risk Factors Present?: Yes Each Factor Represents 1 point: Swollen legs (current) Each Risk Factor Represents 3 Points: Age 75 years or older Thrombosis Risk Factor Assessment Total Risk Factor Score: 4 Thrombosis Risk Factor Assessment Level: Moderate Risk
[2024-05-04] MEDS ORDERED: LORazepam 2 MG/ML INJ IV PRN (18:32)
[2024-05-04 19:56] LABS: ALT 18 U/L (4-34); AST 26 U/L (14-36); African American GFR (CKD) >90 (>60 ml/min/1.73 sqM); Albumin 3.2 g/dL (3.5-5.0); Albumin/Globulin Ratio 1.2; Alkaline Phosphatase 90 U/L (38-126); Anion Gap 5 mmol/L; Blood Urea Nitrogen 13 mg/dL (7-17); Calcium 8.4 mg/dL (8.4-10.2); Carbon Dioxide 28 mmol/L (22-30); Chloride 101 mmol/L (98-107); Globulin 2.7 g/dL; Glucose 182 mg/dL (74-99); Non-African American GFR(CKD) 88 (>60 ml/min/1.73 sqM); Potassium 3.2 mmol/L (3.5-5.1); Sodium 134 mmol/L (137-145); Total Bilirubin 0.8 mg/dL (0.2-1.3); Total Protein 5.9 g/dL (6.3-8.2)
[2024-05-05 04:18] LABS: African American GFR (CKD) >90 (>60 ml/min/1.73 sqM); Non-African American GFR(CKD) 88 (>60 ml/min/1.73 sqM)
[2024-05-05] MEDS ORDERED: Potassium Replacement Protocol 1 EACH MISC MISCELLANE PRN (07:02)
--- NOTE | 2024-05-05 07:49 | P.CONS ---
History of Present Illness - Reason for Consult Consult date: 05/04/24 Cellulitis Requesting physician: Gulshan Merida - Chief Complaint Increasing swelling redness to the legs x days - History of Present Illness Patient is a 84-year-old female with a past medical history significant for diabetes mellitus hypertension hyperlipidemia osteoarthritis dementia patient has been brought into the hospital for evaluation of bilateral lower extremity swelling redness and drainage and this patient symptom has been getting worse over the last few days as the patient noticed to have increasing swelling to the leg and has progressive got worse and subsequent developing redness to the leg patient complaining of pain to the leg more for daily aching mild to moderate without any radiation and did have some blister formation patient denies high-grade fever or any chills and no fever have been recorded except a low-grade temperature of 99.5 F last evening patient was not tachycardic hypotensive was mildly hypoxic currently on 2 L nasal cannula oxygen patient did have white count of 12,000 with a left shift creatinine 0.57 electrolytes has been normal liver enzymes are normal urine is negative blood cultures obtained which are currently pending patient was started on vancomycin and admitted to hospital infectious disease was consulted for further management of antibiotic therapy Review of Systems Positive point and negatives has been mentioned in the HPI, complete review of systems was performed and all other systems are negative Past Medical History Past Medical History: Dementia, Diabetes Mellitus, Hyperlipidemia, Hypertension, Osteoarthritis (OA) Additional Past Medical History / Comment(s): Family states she is borderline di abetic. Takes no meds History of Any Multi-Drug Resistant Organisms: None Reported Past Surgical History: Adenoidectomy, Tonsillectomy Smoking Status: Never smoker Medications and Allergies Home Medications Medication Instructions Recorded Confirmed Type atenoloL 100 mg PO DAILY 05/22/16 05/04/24 History Atorvastatin [Lipitor] 40 mg PO DAILY 09/19/23 05/04/24 History Allergies Allergy/AdvReac Type Severity Reaction Status Date / Time No Known Allergies Allergy Verified 05/04/24 12:37 Physical Exam Vitals: Vital Signs Temp Pulse Pulse Resp BP BP Pulse Ox 05/04/24 07:00 98.2 F 90 17 132/72 95 05/04/24 01:36 98.3 F 99 18 95 05/04/24 00:53 98.1 F 109 H 20 92/66 92 L 05/03/24 22:19 91 16 141/74 95 05/03/24 19:59 91 16 135/77 96 05/03/24 19:32 99.5 F 05/03/24 15:03 98.9 F 76 20 144/69 100 Intake and Output 05/03/24 05/04/24 05/04/24 22:59 06:59 14:59 Other: Voiding Method Incontinent # Voids 3 Weight 83.915 kg 83.915 kg GENERAL DESCRIPTION: Elderly female lying in bed, no distress. No tachypnea or accessory muscle of respiration use. HEENT: Shows Pallor , no scleral icterus. Oral mucous membrane is dry. No pharyngeal erythema or thrush NECK: Trachea central, no thyromegaly. LUNGS: Unlabored breathing. Clear to auscultation anteriorly. No wheeze or crackle. HEART: S1, S2, regular rate and rhythm. No loud murmur ABDOMEN: Soft, no tenderness , guarding or rigidity, no organomegaly EXTREMITIES: Diffuse swelling redness of bilateral lower extremity which is warm and tender to touch SKIN: No rash, no masses palpable. NEUROLOGICAL: The patient is awake, alert, mood and affect normal. Results CBC & Chem 7: 05/03/24 16:37 05/05/24 03:50 Labs: Abnormal Lab Results - Last 24 Hours (Table) 05/03/24 05/03/24 Range/Units 16:37 16:37 WBC 12.0 H (3.8-10.6) k/uL Neutrophils # 9.1 H (1.3-7.7) k/uL Sodium 135 L (137-145) mmol/L BUN 25 H (7-17) mg/dL Glucose 118 H (74-99) mg/dL AST 45 H (14-36) U/L Assessment and Plan (1) Bilateral lower leg cellulitis Current Visit: Yes Status: Acute Code(s): L03.116 - CELLULITIS OF LEFT LOWER LIMB; L03.115 - CELLULITIS OF RIGHT LOWER LIMB SNOMED Code(s): 874134167 (2) Failure of outpatient treatment Current Visit: No Status: Acute Code(s): Z78.9 - OTHER SPECIFIED HEALTH STATUS SNOMED Code(s): 372339953 Plan: 1patient presented to hospital with increasing swelling and redness to bilateral lower extremity this patient did have diffuse swelling and redness some blister which has dried out no open wound or any drainage with a cellulitis likely from gram-positive skin gurdeep 2-leukocytosis more likely due to cellulitis 3-marked pain of the redness and apply Vasyl wrap from just above the toe to below the knee 4-discontinue vancomycin 5-we will start the patient cefazolin 2 g every 8 hours We will follow on clinical condition and cultures to further adjust medication if needed Thank you for this consultation we will follow the patient along with you Dictation was produced using [employer] dictation software. please excuse any grammatical, word or spelling errors. Time with Patient: Greater than 30
[2024-05-05] MEDS: POTASSIUM CHLORIDE ER 20 MEQ TAB.ER PO SCH (09:21)
[2024-05-05] MEDS: ATORVASTATIN 40 MG TAB PO SCH (09:22)
[2024-05-05 09:28] LABS: Basophils # (A) 0.06 X 10*3/uL (0.00-0.10); Basophils % (A) 0.6 %; Eosinophils # (A) 0.13 X 10*3/uL (0.04-0.35); Eosinophils % (A) 1.4 %; HCT 37.1 % (37.2-46.3); HGB 11.9 g/dL (12.0-15.0); Lymphocytes # (A) 1.45 X 10*3/uL (0.90-5.00); Lymphocytes % (A) 15.7 %; MCH 29.2 pg (27.0-32.0); MCHC 32.1 g/dL (32.0-37.0); MCV 90.9 FL (80.0-97.0); Mean Platelet Volume 12.1 FL (9.5-12.2); Monocytes # (A) 1.03 X 10*3/uL (0.20-1.00); Monocytes % (A) 11.1 %; NRBC Per 100 WBC 0 X 10*3/uL (0.00-0.01); Neutrophils # (A) 6.55 X 10*3/uL (1.80-7.70); Neutrophils % (A) 70.9 %; Platelet Count 181 X 10*3/uL (140-440); RBC 4.08 X 10*6/uL (4.10-5.20); RDW 14.5 % (11.5-14.5); WBC 9.25 X 10*3/uL (4.50-10.00)
[2024-05-05] MEDS ORDERED: LORazepam 0.5 MG TAB PO PRN (15:20)
[2024-05-05] MEDS: POTASSIUM CHLORIDE ER 20 MEQ TAB.ER PO STA (16:00)
[2024-05-05] MEDS: QUEtiapine 25 MG TAB PO STA (17:01)
[2024-05-05] MEDS: NYSTATIN 100,000 UNIT/GM POWD 15 GM TOPICAL SCH (19:09)
--- NOTE | 2024-05-05 21:10 | P.PN ---
Subjective Progress Note Date: 05/05/24 History of present illness; Patient is an 84-year-old female with hypertension, diabetes, severe dementia presenting with bilateral lower extremity swelling with wound. Patient with dementia and poor historian. Spoke with daughter over phone who states that over the last few weeks her mother has become increasingly weak with 2 falls, last being yesterday when she got up off toilet and fell onto her chest and abdomen. She does have history of lower extremity cellulitis. She is increasingly tired when walking short distances. She also attest to sleeping on recliner for years. And she has previously been seen by cardiology associates, for stated abnormal echo. Currently patient unable to answer questions however noted to be in distress when turning and examining lower extremities. Labs done in ER significant for WBC 12, neutrophils 9.1, sodium 135, BUN 25, creatinine 0.57, glucose 187, proBNP 404, UA is unremarkable. Spoke with the ER physician, patient admission was accepted by internal medicine service for treatment. 05/05/2024 Patient is seen in follow-up today continued on cefazolin with infectious disease following and continued wound care of the bilateral lower extremities. Currently awaiting a.m. labs as potassium was slightly low and replaced yesterday. Will have PT/OT therapy evaluate the patient in the a.m. and discuss with case management/social work regarding discharge planning. REVIEW OF SYSTEMS: Unable to obtain due to mental status. PHYSICAL EXAMINATION: Vitals reviewed GENERAL: No acute distress. Well developed, well nourished. HEENT: Pupils are round and equally reacting to light. EOMI. No scleral icterus. Normocephalic, atraumatic. CARDIOVASCULAR: S1 and S2 present. No murmurs, rubs, or gallops. PULMONARY: Chest is clear to auscultation, no wheezing, rhonchi, or crackles. ABDOMEN: Soft, nontender, nondistended, normoactive bowel sounds. No palpable organomegaly. MUSCULOSKELETAL: No apparent joint swelling and deformities. EXTREMITIES: No apparent cyanosis, clubbing, or 2+ pedal edema. NEUROLOGICAL: The patient is alert and oriented x1, Gross neurological examination did not reveal any focal deficits. SKIN: Bilateral lower extremity ulcerated and weeping wounds, surrounding erythema, no pus noted Assessment and plan Patient is an 84-year-old female with hypertension, diabetes, dementia presenting with bilateral lower extremity swelling with wound. #Cellulitis due to chronic venous insufficiency of bilateral lower limbs #Lower extremity edema -blood culture pending -Begin cefazolin 2gm q8hr One-time dose IV Lasix 40 mg -consult wound care ID following and will continue current regimen # Lumbar back pain # Mechanical fall #Lower extremity weakness CT lumbar spine findings of no acute fracture, lumbosacral degenerative changes, trace pleural effusion PT OT consulted and will also consult case management/social work in the event patient may need ECF #Pleural effusion, small bilateral Chest x-ray with pulmonary vascular congestion Echocardiogram finding of EF 55%, mild LVH - proBNP 404 One-time dose IV Lasix 40 mg as above Resume home medication Chronic Medical Conditions #Diabetes mellitus, type 2 Diet controlled, no home medication #Hyperlidemia - Resume home medication F: P.o. E: Replete as needed N: Regular diet DVT ppx: Subq Lovenox 40 meq daily Code status: Full code Plan: Patient will be continued on IV cefazolin with infectious disease following and continue local wound care Await updated PT/OT therapy evaluation and notes in the morning and also case management/social work consult in regards to possible ECF Continue elevating lower extremities while at rest Will follow-up on repeat labs and replace electrolytes per protocol. Continue monitoring Accu-Cheks ACHS and will continue with sliding scale and adjust insulins accordingly Due to multiple complex medical issues, overall prognosis is guarded Anticipated discharge place: Home with home care versus possible ECF Anticipated discharge time: 1 to 2 days Dictation was produced using [employer] dictation software. Please excuse any grammatical, word or spelling errors. The impression and plan of care has been dictated as a scribe by Evelyne Hazel, Nurse Practitioner as directed. Dr. Matthew MD I have performed a history and examination and MDM of this patient, discussed the same with the dictator, and agree with the dictator's assessment and plan as written ,documented as a scribe. Based on total visit time, I have performed more than 50% of the visit. Objective - Vital Signs Vital signs: Vital Signs Temp 98.4 F 05/05/24 02:00 Pulse 85 05/05/24 02:00 Resp 18 05/05/24 02:00 BP 143/67 05/05/24 02:00 Pulse Ox 94 L 05/05/24 02:00 FiO2 Intake & Output 05/04/24 05/05/24 05/05/24 18:59 06:59 18:59 Intake Total 118 Balance 118 Intake: Oral 118 Other: Voiding Method Incontinent Incontinent # Voids 4 1 - Labs CBC & Chem 7: 05/05/24 03:50 05/05/24 03:50 Labs: Abnormal Lab Results - Last 24 Hours (Table) 05/04/24 Range/Units 19:09 Sodium 134 L (137-145) mmol/L Potassium 3.2 L (3.5-5.1) mmol/L Glucose 182 H (74-99) mg/dL Total Protein 5.9 L (6.3-8.2) g/dL Albumin 3.2 L (3.5-5.0) g/dL Microbiology - Last 24 Hours (Table) 05/03/24 19:32 Blood Culture - Preliminary Blood
[2024-05-06 05:28] LABS: African American GFR (CKD) >90 (>60 ml/min/1.73 sqM); Anion Gap 3 mmol/L; Blood Urea Nitrogen 11 mg/dL (7-17); Calcium 8.7 mg/dL (8.4-10.2); Carbon Dioxide 26 mmol/L (22-30); Chloride 104 mmol/L (98-107); Glucose 129 mg/dL (74-99); Non-African American GFR(CKD) 89 (>60 ml/min/1.73 sqM); Potassium 3.9 mmol/L (3.5-5.1); Sodium 133 mmol/L (137-145)
[2024-05-06] MEDS: LIDOCAINE 4% PATCH TOPICAL SCH (17:36)
--- NOTE | 2024-05-06 18:24 | P.PN ---
Subjective Progress Note Date: 05/06/24 History of present illness; Patient is an 84-year-old female with hypertension, diabetes, severe dementia p resenting with bilateral lower extremity swelling with wound. Patient with dementia and poor historian. Spoke with daughter over phone who states that over the last few weeks her mother has become increasingly weak with 2 falls, last being yesterday when she got up off toilet and fell onto her chest and abdomen. She does have history of lower extremity cellulitis. She is increasingly tired when walking short distances. She also attest to sleeping on recliner for years. And she has previously been seen by cardiology associates, for stated abnormal echo. Currently patient unable to answer questions however noted to be in distress when turning and examining lower extremities. Labs done in ER significant for WBC 12, neutrophils 9.1, sodium 135, BUN 25, creatinine 0.57, glucose 187, proBNP 404, UA is unremarkable. Spoke with the ER physician, patient admission was accepted by internal medicine service for treatment. 05/05/2024 Patient is seen in follow-up today continued on cefazolin with infectious disease following and continued wound care of the bilateral lower extremities. Currently awaiting a.m. labs as potassium was slightly low and replaced yesterday. Will have PT/OT therapy evaluate the patient in the a.m. and discuss with case management/social work regarding discharge planning. 05/06/2024 Patient seen and examined at bedside with family present. She continues to endorse generalized pain. She continues on cefazolin and is followed by ID. PT/OT suggest subacute rehab on discharge. Today's labs sodium 133, potassium 3.9, glucose 129. REVIEW OF SYSTEMS: Unable to obtain due to mental status. PHYSICAL EXAMINATION: Vitals reviewed GENERAL: No acute distress. Well developed, well nourished. HEENT: Pupils are round and equally reacting to light. EOMI. No scleral icterus. Normocephalic, atraumatic. CARDIOVASCULAR: S1 and S2 present. No murmurs, rubs, or gallops. PULMONARY: Chest is clear to auscultation, no wheezing, rhonchi, or crackles. ABDOMEN: Soft, nontender, nondistended, normoactive bowel sounds. No palpable organomegaly. MUSCULOSKELETAL: No apparent joint swelling and deformities. EXTREMITIES: No apparent cyanosis, clubbing, or 1+ pedal edema. NEUROLOGICAL: The patient is alert and oriented x1, Gross neurological examination did not reveal any focal deficits. SKIN: Bilateral lower extremity ulcerated and weeping wounds, surrounding erythema, no pus noted Assessment and plan Patient is an 84-year-old female with hypertension, diabetes, dementia p resenting with bilateral lower extremity swelling with wound. #Chronic venous insufficiency of bilateral lower limbs #Venous insufficiency ulcers bilaterally #Lower extremity edema -blood culture pending -Continue cefazolin 2gm q8hr One-time dose IV Lasix 40 mg -Continue Z guard and nystatin topical treatment Continue wound care ID following and will continue current regimen # Mechanical fall #Lower extremity weakness CT lumbar spine findings of no acute fracture, lumbosacral degenerative changes, trace pleural effusion Lidocaine patch PT OT suggest subacute rehab on discharge #Pleural effusion, small bilateral Chest x-ray with pulmonary vascular congestion Echocardiogram finding of EF 55%, mild LVH - proBNP 404 One-time dose IV Lasix 40 mg as above Resume home medication Chronic Medical Conditions #Diabetes mellitus, type 2 Diet controlled, no home medication #Hyperlidemia - Resume home medication #Dementia F: P.o. E: Replete as needed N: Regular diet DVT ppx: Subq Lovenox 40 meq daily Code status: No code Anticipated discharge place: ECF Anticipated discharge time: 1 to 2 days Dictation was produced using [employer] dictation software. Please excuse any grammatical, word or spelling errors. Attestation I have seen and examined this patient with my resident , discussed the same with the resident/BRANDEN, and agree with the dictator's assessment and plan as written Dr. Hector gao Objective - Vital Signs Vital signs: Vital Signs Temp 98.8 F 05/06/24 15:00 Pulse 83 05/06/24 15:00 Resp 16 05/06/24 15:00 BP 142/73 05/06/24 15:00 Pulse Ox 96 05/06/24 15:00 FiO2 Intake & Output 05/05/24 05/06/24 05/06/24 18:59 06:59 18:59 Intake Total 906 Balance 906 Intake: Oral 906 Other: Voiding Method Incontinent Incontinent Incontinent # Voids 2 0 1 # Bowel Movements 1 - Labs CBC & Chem 7: 05/07/24 04:26 05/07/24 04:26 Labs: Abnormal Lab Results - Last 24 Hours (Table) 05/06/24 Range/Units 04:25 Sodium 133 L (137-145) mmol/L Glucose 129 H (74-99) mg/dL Microbiology - Last 24 Hours (Table) 05/03/24 19:32 Blood Culture - Preliminary Blood
--- NOTE | 2024-05-06 22:39 | P.PN ---
Subjective Progress Note Date: 05/05/24 Principal diagnosis: Reason for follow-up is bilateral lower extremity cellulitis right leg ulcer Patient is a 84-year-old female with a past medical history significant for diabetes mellitus hypertension hyperlipidemia osteoarthritis dementia patient has been brought into the hospital for evaluation of bilateral lower extremity swelling redness and drainage has been diagnosed with a venous stasis ulcer and cellulitis. On today's evaluation that is 05/05/2024, Patient is afebrile patient is currently on 2 L nasal cannula oxygen and denies having any shortness of breath, the patient denies any chest pain or cough, the patient denies any nausea vomiting did not have any abdominal pain and no diarrhea. Pain to the leg has slightly decreased intensity. Patient white count normalized to 9.25, creatinine 0.54 Objective - Vital Signs Vital signs: Vital Signs Temp 98.4 F 05/05/24 02:00 Pulse 85 05/05/24 02:00 Resp 18 05/05/24 02:00 BP 143/67 05/05/24 02:00 Pulse Ox 94 L 05/05/24 02:00 FiO2 Intake & Output 05/04/24 05/05/24 05/05/24 18:59 06:59 18:59 Intake Total 118 Balance 118 Intake: Oral 118 Other: Voiding Method Incontinent Incontinent # Voids 4 1 - Exam GENERAL DESCRIPTION: An elderly female lying in bed in no distress RESPIRATORY SYSTEM: Unlabored breathing , decreased breath sounds at bases HEART: S1 S2 regular rate and rhythm , ABDOMEN: Soft , no tenderness EXTREMITIES: Bilateral lower extremity currently wrapped - Labs CBC & Chem 7: 05/05/24 03:50 05/06/24 04:25 Labs: Abnormal Lab Results - Last 24 Hours (Table) 05/04/24 Range/Units 19:09 Sodium 134 L (137-145) mmol/L Potassium 3.2 L (3.5-5.1) mmol/L Glucose 182 H (74-99) mg/dL Total Protein 5.9 L (6.3-8.2) g/dL Albumin 3.2 L (3.5-5.0) g/dL Microbiology - Last 24 Hours (Table) 05/03/24 19:32 Blood Culture - Preliminary Blood Assessment and Plan (1) Bilateral lower leg cellulitis Current Visit: Yes Status: Acute Code(s): L03.116 - CELLULITIS OF LEFT LOWER LIMB; L03.115 - CELLULITIS OF RIGHT LOWER LIMB SNOMED Code(s): 063094334 (2) Failure of outpatient treatment Current Visit: No Status: Acute Code(s): Z78.9 - OTHER SPECIFIED HEALTH STATUS SNOMED Code(s): 958169621 Plan: 1patient presented to hospital with increasing swelling and redness to bilateral lower extremity this patient did have diffuse swelling and redness some blister which has dried out no open wound or any drainage with a cellulitis likely from gram-positive skin gurdeep 2-leukocytosis more likely due to cellulitis which has resolved 3-patient to continue with Vasyl wrap from just above the toe to below the knee 4-we will treat the patient with cefazolin 2 g every 8 hours while inpatient Dictation was produced using [employer] dictation software. please excuse any grammatical, word or spelling errors. Time with Patient: Less than 30
--- NOTE | 2024-05-06 22:40 | P.PN ---
Subjective Progress Note Date: 05/06/24 Principal diagnosis: Reason for follow-up is bilateral lower extremity cellulitis right leg ulcer Patient is a 84-year-old female with a past medical history significant for diabetes mellitus hypertension hyperlipidemia osteoarthritis dementia patient has been brought into the hospital for evaluation of bilateral lower extremity swelling redness and drainage has been diagnosed with a venous stasis ulcer and cellulitis. On today's evaluation that is 05/06/2024, patient continues to be afebrile patient is breathing comfortably on the 2 L nasal oxygen, patient denies having any chest pain shortness of breath or cough no abdominal pain some discomfort to the lower extremity but no worsening. No CBC done today her white count normal at 10.25 yesterday creatinine 0.52 blood cultures so far negative Objective - Vital Signs Vital signs: Vital Signs Temp 98.3 F 05/06/24 19:33 Pulse 83 05/06/24 19:33 Resp 19 05/06/24 19:33 BP 130/74 05/06/24 19:33 Pulse Ox 93 L 05/06/24 19:33 FiO2 Intake & Output 05/06/24 05/06/24 05/07/24 06:59 18:59 06:59 Intake Total 221 Balance 221 Intake: Oral 221 Other: Voiding Method Incontinent Incontinent # Voids 0 1 # Bowel Movements 1 - Exam GENERAL DESCRIPTION: An elderly female lying in bed in no distress RESPIRATORY SYSTEM: Unlabored breathing , decreased breath sounds at bases HEART: S1 S2 regular rate and rhythm , ABDOMEN: Soft , no tenderness EXTREMITIES: Right lower extremity with an ulcer no significant slough tissue some surrounding redness - Labs CBC & Chem 7: 05/05/24 03:50 05/06/24 04:25 Labs: Abnormal Lab Results - Last 24 Hours (Table) 05/06/24 Range/Units 04:25 Sodium 133 L (137-145) mmol/L Glucose 129 H (74-99) mg/dL Microbiology - Last 24 Hours (Table) 05/03/24 19:32 Blood Culture - Preliminary Blood Assessment and Plan (1) Bilateral lower leg cellulitis Current Visit: Yes Status: Acute Code(s): L03.116 - CELLULITIS OF LEFT LOWER LIMB; L03.115 - CELLULITIS OF RIGHT LOWER LIMB SNOMED Code(s): 123931191 (2) Failure of outpatient treatment Current Visit: No Status: Acute Code(s): Z78.9 - OTHER SPECIFIED HEALTH STATUS SNOMED Code(s): 039276864 Plan: 1patient presented to hospital with increasing swelling and redness to bilateral lower extremity this patient did have diffuse swelling and redness oren e blister which has dried out no open wound or any drainage with a cellulitis likely from gram-positive skin gurdeep 2-leukocytosis more likely due to cellulitis which has resolved 3-we will apply Aquacel silver dressing to the open ulcer followed by Vasyl wrap from just above the toe to below the knee 4-we will treat the patient with cefazolin 2 g every 8 hours with a plan to finish therapy with oral Keflex Plan of care discussed with the hospital team Dictation was produced using [employer] dictation software. please excuse any grammatical, word or spelling errors. Time with Patient: Less than 30
[2024-05-07 08:18] LABS: HCT 39.1 % (37.2-46.3); HGB 12.9 g/dL (12.0-15.0); MCV 87.9 FL (80.0-97.0); Mean Platelet Volume 11.2 FL (9.5-12.2); NRBC Per 100 WBC 0 X 10*3/uL (0.00-0.01); Platelet Count 220 X 10*3/uL (140-440); RBC 4.45 X 10*6/uL (4.10-5.20); RDW 14.5 % (11.5-14.5)
[2024-05-07 08:44] LABS: Blood Urea Nitrogen 11.7 mg/dL (9.0-27.0); Calcium 8.5 mg/dL (8.7-10.3); Carbon Dioxide 25.2 mmol/L (21.6-31.8); Chloride 104 mmol/L (96-109); Glucose 129 mg/dL (70-110); Potassium 3.9 mmol/L (3.5-5.5); Sodium 138 mmol/L (135-145)
--- NOTE | 2024-05-07 13:35 | P.PN ---
Subjective Progress Note Date: 05/07/24 History of present illness; Patient is an 84-year-old female with hypertension, diabetes, severe dementia p resenting with bilateral lower extremity swelling with wound. Patient with dementia and poor historian. Spoke with daughter over phone who states that over the last few weeks her mother has become increasingly weak with 2 falls, last being yesterday when she got up off toilet and fell onto her chest and abdomen. She does have history of lower extremity cellulitis. She is increasingly tired when walking short distances. She also attest to sleeping on recliner for years. And she has previously been seen by cardiology associates, for stated abnormal echo. Currently patient unable to answer questions however noted to be in distress when turning and examining lower extremities. Labs done in ER significant for WBC 12, neutrophils 9.1, sodium 135, BUN 25, creatinine 0.57, glucose 187, proBNP 404, UA is unremarkable. Spoke with the ER physician, patient admission was accepted by internal medicine service for treatment. 05/05/2024 Patient is seen in follow-up today continued on cefazolin with infectious disease following and continued wound care of the bilateral lower extremities. Currently awaiting a.m. labs as potassium was slightly low and replaced yesterday. Will have PT/OT therapy evaluate the patient in the a.m. and discuss with case management/social work regarding discharge planning. 05/06/2024 Patient seen and examined at bedside with family present. She continues to endorse generalized pain. She continues on cefazolin and is followed by ID. PT/OT suggest subacute rehab on discharge. Today's labs sodium 133, potassium 3.9, glucose 129. 05/07/2024 Patient seen and examined at bedside. She states she is in no pain today. in room states she is at baseline mentation. She continues on IV cefazolin 2 g IVPB 8 every 8 hours. Lab significant today WBC 9.9, sodium 138, potassium 3.9, glucose 129. Will continue to wait on placement. REVIEW OF SYSTEMS: Unable to obtain due to mental status. PHYSICAL EXAMINATION: Vitals reviewed GENERAL: No acute distress. Well developed, well nourished. HEENT: Pupils are round and equally reacting to light. EOMI. No scleral icterus. Normocephalic, atraumatic. CARDIOVASCULAR: S1 and S2 present. No murmurs, rubs, or gallops. PULMONARY: Chest is clear to auscultation, no wheezing, rhonchi, or crackles. ABDOMEN: Soft, nontender, nondistended, normoactive bowel sounds. No palpable organomegaly. MUSCULOSKELETAL: No apparent joint swelling and deformities. EXTREMITIES: No apparent cyanosis, clubbing, or 1+ pedal edema. NEUROLOGICAL: The patient is alert and oriented x1, Gross neurological examination did not reveal any focal deficits. SKIN: Lower extremities wrapped in bandages and sterile dressings. Assessment and plan Patient is an 84-year-old female with hypertension, diabetes, dementia presenting with bilateral lower extremity swelling with wound. #Chronic venous insufficiency of bilateral lower limbs #Venous insufficiency ulcers bilaterally #Lower extremity edema -blood culture no growth thus far -Continue cefazolin 2gm q8hr One-time dose IV Lasix 40 mg -Continue Z guard and nystatin topical treatment Continue wound care ID following and will continue current regimen # Mechanical fall #Lower extremity weakness CT lumbar spine findings of no acute fracture, lumbosacral degenerative changes, trace pleural effusion Lidocaine patch PT OT suggest subacute rehab on discharge #Pleural effusion, small bilateral Chest x-ray with pulmonary vascular congestion Echocardiogram finding of EF 55%, mild LVH - proBNP 404 One-time dose IV Lasix 40 mg as above Resume home medication #Dementia Patient seems to be at baseline mentation, A+O x 1 Chronic Medical Conditions #Diabetes mellitus, type 2 Diet controlled, no home medication #Hyperlidemia - Resume home medication F: P.o. E: Replete as needed N: Regular diet DVT ppx: Subq Lovenox 40 meq daily Code status: No code Anticipated discharge place: [facility] Anticipated discharge time: 1 to 2 days Dictation was produced using [employer] dictation software. Please excuse any grammatical, word or spelling errors. Attestation I have seen and examined this patient with my resident , discussed the same with the resident/BRANDEN, and agree with the dictator's assessment and plan as written Dr. Hector gao Objective - Vital Signs Vital signs: Vital Signs Temp 98.2 F 05/07/24 01:46 Pulse 94 05/07/24 01:46 Resp 17 05/07/24 01:46 BP 134/73 05/07/24 01:46 Pulse Ox 94 L 05/07/24 01:46 FiO2 Intake & Output 05/06/24 05/07/24 05/07/24 18:59 06:59 18:59 Intake Total 221 Balance 221 Intake: Oral 221 Other: Voiding Method Incontinent Diaper Incontinent # Voids 1 4 # Bowel Movements 1 2 - Labs CBC & Chem 7: 05/09/24 05:28 05/07/24 04:26 Labs: Abnormal Lab Results - Last 24 Hours (Table) 05/07/24 Range/Units 04:26 Creatinine 0.5 L (0.6-1.5) mg/dL BUN/Creatinine Ratio 23.40 H (12.00-20.00) Ratio Glucose 129 H (70-110) mg/dL Calcium 8.5 L (8.7-10.3) mg/dL Microbiology - Last 24 Hours (Table) 05/03/24 19:32 Blood Culture - Preliminary Blood
--- NOTE | 2024-05-07 16:03 | P.PN ---
Subjective Progress Note Date: 05/07/24 Principal diagnosis: Reason for follow-up is bilateral lower extremity cellulitis right leg ulcer Patient is a 84-year-old female with a past medical history significant for diabetes mellitus hypertension hyperlipidemia osteoarthritis dementia patient has been brought into the hospital for evaluation of bilateral lower extremity swelling redness and drainage has been diagnosed with a venous stasis ulcer and cellulitis. On today's evaluation that is 05/07/2024, Patient is afebrile this morning patient denies having any chest pain shortness of breath or cough, the patient is currently on room air, patient denies any abdominal pain no diarrhea no nausea no vomiting, pain to the lower extremity has decreased in intensity. Patient white count is 9.90, creatinine 0.5 , Objective - Vital Signs Vital signs: Vital Signs Temp 97.6 F 05/07/24 07:00 Pulse 97 05/07/24 07:00 Resp 16 05/07/24 07:00 BP 159/89 05/07/24 07:00 Pulse Ox 95 05/07/24 07:00 FiO2 Intake & Output 05/06/24 05/07/24 05/07/24 18:59 06:59 18:59 Intake Total 221 118 Balance 221 118 Intake: Oral 221 118 Other: Voiding Method Incontinent Diaper Diaper Incontinent Incontinent # Voids 1 4 # Bowel Movements 1 2 - Exam GENERAL DESCRIPTION: An elderly female lying in bed in no distress RESPIRATORY SYSTEM: Unlabored breathing , decreased breath sounds at bases HEART: S1 S2 regular rate and rhythm , ABDOMEN: Soft , no tenderness EXTREMITIES: Right lower extremity with an ulcer no significant slough tissue some surrounding redness - Labs CBC & Chem 7: 05/07/24 04:26 05/07/24 04:26 Labs: Abnormal Lab Results - Last 24 Hours (Table) 05/07/24 Range/Units 04:26 Creatinine 0.5 L (0.6-1.5) mg/dL BUN/Creatinine Ratio 23.40 H (12.00-20.00) Ratio Glucose 129 H (70-110) mg/dL Calcium 8.5 L (8.7-10.3) mg/dL Microbiology - Last 24 Hours (Table) 05/03/24 19:32 Blood Culture - Preliminary Blood Assessment and Plan (1) Bilateral lower leg cellulitis Current Visit: Yes Status: Acute Code(s): L03.116 - CELLULITIS OF LEFT LOWER LIMB; L03.115 - CELLULITIS OF RIGHT LOWER LIMB SNOMED Code(s): 116242760 (2) Failure of outpatient treatment Current Visit: No Status: Acute Code(s): Z78.9 - OTHER SPECIFIED HEALTH STATUS SNOMED Code(s): 465490886 Plan: 1patient presented to hospital with increasing swelling and redness to bilateral lower extremity this patient did have diffuse swelling and redness s ome blister which has dried out no open wound or any drainage with a cellulitis likely from gram-positive skin gurdeep 2-leukocytosis more likely due to cellulitis, the patient considers it has resolved 3-local wound care with Aquacel silver dressing to the open ulcer followed by Vasyl wrap from just above the toe to below the knee 4-patient to be treated with cefazolin 2 g every 8 hours with a plan to finish therapy with oral Keflex Family at bedside question answered Dictation was produced using [employer] dictation software. please excuse any grammatical, word or spelling errors. Time with Patient: Less than 30
--- NOTE | 2024-05-08 16:33 | P.PN ---
Subjective Progress Note Date: 05/08/24 History of present illness; Patient is an 84-year-old female with hypertension, diabetes, severe dementia p resenting with bilateral lower extremity swelling with wound. Patient with dementia and poor historian. Spoke with daughter over phone who states that over the last few weeks her mother has become increasingly weak with 2 falls, last being yesterday when she got up off toilet and fell onto her chest and abdomen. She does have history of lower extremity cellulitis. She is increasingly tired when walking short distances. She also attest to sleeping on recliner for years. And she has previously been seen by cardiology associates, for stated abnormal echo. Currently patient unable to answer questions however noted to be in distress when turning and examining lower extremities. Labs done in ER significant for WBC 12, neutrophils 9.1, sodium 135, BUN 25, creatinine 0.57, glucose 187, proBNP 404, UA is unremarkable. Spoke with the ER physician, patient admission was accepted by internal medicine service for treatment. 05/05/2024 Patient is seen in follow-up today continued on cefazolin with infectious disease following and continued wound care of the bilateral lower extremities. Currently awaiting a.m. labs as potassium was slightly low and replaced yesterday. Will have PT/OT therapy evaluate the patient in the a.m. and discuss with case management/social work regarding discharge planning. 05/06/2024 Patient seen and examined at bedside with family present. She continues to endorse generalized pain. She continues on cefazolin and is followed by ID. PT/OT suggest subacute rehab on discharge. Today's labs sodium 133, potassium 3.9, glucose 129. 05/07/2024 Patient seen and examined at bedside. She states she is in no pain today. in room states she is at baseline mentation. She continues on IV cefazolin 2 g IVPB 8 every 8 hours. Lab significant today WBC 9.9, sodium 138, potassium 3.9, glucose 129. Will continue to wait on placement. 05/08. Patient seen and examined. Patient continues to be pleasantly confused which is her baseline. REVIEW OF SYSTEMS: Unable to obtain due to mental status. PHYSICAL EXAMINATION: Vitals reviewed GENERAL: No acute distress. Well developed, well nourished. HEENT: Pupils are round and equally reacting to light. EOMI. No scleral icterus. Normocephalic, atraumatic. CARDIOVASCULAR: S1 and S2 present. No murmurs, rubs, or gallops. PULMONARY: Chest is clear to auscultation, no wheezing, rhonchi, or crackles. ABDOMEN: Soft, nontender, nondistended, normoactive bowel sounds. No palpable organomegaly. MUSCULOSKELETAL: No apparent joint swelling and deformities. EXTREMITIES: No apparent cyanosis, clubbing, or 1+ pedal edema. NEUROLOGICAL: The patient is alert and oriented x1, Gross neurological examination did not reveal any focal deficits. SKIN: Lower extremities wrapped in bandages and sterile dressings. Assessment and plan Patient is an 84-year-old female with hypertension, diabetes, dementia presenting with bilateral lower extremity swelling with wound. #Chronic venous insufficiency of bilateral lower limbs #Venous insufficiency ulcers bilaterally #Lower extremity edema -blood culture no growth thus far -Continue cefazolin 2gm q8hr One-time dose IV Lasix 40 mg -Continue Z guard and nystatin topical treatment Continue wound care ID following and will continue current regimen # Mechanical fall #Lower extremity weakness CT lumbar spine findings of no acute fracture, lumbosacral degenerative changes, trace pleural effusion Lidocaine patch PT OT suggest subacute rehab on discharge #Pleural effusion, small bilateral Chest x-ray with pulmonary vascular congestion Echocardiogram finding of EF 55%, mild LVH - proBNP 404 One-time dose IV Lasix 40 mg as above Resume home medication #Dementia Patient seems to be at baseline mentation, A+O x 1 Chronic Medical Conditions #Diabetes mellitus, type 2 Diet controlled, no home medication #Hyperlidemia - Resume home medication Objective - Vital Signs Vital signs: Vital Signs Temp 98.4 F 05/08/24 07:00 Pulse 90 05/08/24 07:00 Resp 16 05/08/24 07:00 BP 142/73 05/08/24 07:00 Pulse Ox 98 05/08/24 07:00 FiO2 Intake & Output 05/07/24 05/08/24 05/08/24 18:59 06:59 18:59 Intake Total 236 Balance 236 Intake: Oral 236 Other: Voiding Method Diaper Diaper Diaper Incontinent Incontinent Incontinent # Voids 2 1 1 # Bowel Movements 1 1 - Labs CBC & Chem 7: 05/07/24 04:26 05/07/24 04:26
[2024-05-09 09:27] LABS: HCT 41.2 % (37.2-46.3); MCH 29.3 pg (27.0-32.0); MCHC 31.6 g/dL (32.0-37.0); MCV 92.8 FL (80.0-97.0); Mean Platelet Volume 11.5 FL (9.5-12.2); NRBC Per 100 WBC 0 X 10*3/uL (0.00-0.01); Platelet Count 227 X 10*3/uL (140-440); RBC 4.44 X 10*6/uL (4.10-5.20); RDW 14.4 % (11.5-14.5); WBC 9.55 X 10*3/uL (4.50-10.00)
[2024-05-09 10:28] LABS: Blood Urea Nitrogen 15.2 mg/dL (9.0-27.0); Calcium 8.5 mg/dL (8.7-10.3); Carbon Dioxide 24.2 mmol/L (21.6-31.8); Chloride 101 mmol/L (96-109); Glucose 109 mg/dL (70-110); Potassium 3.6 mmol/L (3.5-5.5); Sodium 137 mmol/L (135-145)
--- NOTE | 2024-05-09 14:29 | P.PN ---
Subjective Progress Note Date: 05/09/24 Principal diagnosis: Reason for follow-up is bilateral lower extremity cellulitis right leg ulcer Patient is a 84-year-old female with a past medical history significant for diabetes mellitus hypertension hyperlipidemia osteoarthritis dementia patient has been brought into the hospital for evaluation of bilateral lower extremity swelling redness and drainage has been diagnosed with a venous stasis ulcer and cellulitis. On today's evaluation that is 05/09/2024,the patient remains to be afebrile, patient is on room air not requiring supplemental oxygen and denies any shortness of breath no chest pain or cough.Patient denies having any nausea or vomiting, no abdominal pain and no diarrhea has been reported, patient complaining of some pain to the lower back but no pain to the lower extremity. Patient white count is 9.55, creatinine 0.5 Objective - Vital Signs Vital signs: Vital Signs Temp 98.6 F 05/09/24 07:51 Pulse 85 05/09/24 07:51 Resp 16 05/09/24 07:51 BP 128/66 05/09/24 07:51 Pulse Ox 99 05/09/24 07:51 FiO2 Intake & Output 05/08/24 05/09/24 05/09/24 18:59 06:59 18:59 Intake Total 118 Balance 118 Intake: Oral 118 Other: Voiding Method Diaper Diaper Diaper Incontinent Incontinent Incontinent # Voids 2 0 # Bowel Movements 1 - Exam GENERAL DESCRIPTION: An elderly female lying in bed in no distress RESPIRATORY SYSTEM: Unlabored breathing , decreased breath sounds at bases HEART: S1 S2 regular rate and rhythm , ABDOMEN: Soft , no tenderness EXTREMITIES: Bilateral lower extremity currently dressed in Vasyl wrap and no drainage - Labs CBC & Chem 7: 05/09/24 05:28 05/09/24 05:28 Labs: Abnormal Lab Results - Last 24 Hours (Table) 05/09/24 05/09/24 Range/Units 05:28 05:28 MCHC 31.6 L (32.0-37.0) g/dL Creatinine 0.5 L (0.6-1.5) mg/dL BUN/Creatinine Ratio 30.40 H (12.00-20.00) Ratio Calcium 8.5 L (8.7-10.3) mg/dL Microbiology - Last 24 Hours (Table) 05/03/24 19:32 Blood Culture - Final Blood Assessment and Plan (1) Bilateral lower leg cellulitis Current Visit: Yes Status: Acute Code(s): L03.116 - CELLULITIS OF LEFT LOWER LIMB; L03.115 - CELLULITIS OF RIGHT LOWER LIMB SNOMED Code(s): 867896697 (2) Failure of outpatient treatment Current Visit: No Status: Acute Code(s): Z78.9 - OTHER SPECIFIED HEALTH STATUS SNOMED Code(s): 593902656 Plan: 1patient presented to hospital with increasing swelling and redness to bilateral lower extremity this patient did have diffuse swelling and redness some blister which has dried out no open wound or any drainage with a cellulitis likely from gram-positive skin gurdeep 2-leukocytosis more likely due to cellulitis, the patient white count has normalized 3-local wound care with Aquacel silver dressing to the open ulcer followed by Vasyl wrap from just above the toe to below the knee 4-patient has received adequate IV cefazolin she will finish therapy with oral Keflex 500 mg 3 times daily for 7 days on discharge discussed with the resident physician at bedside question answered Dictation was produced using [employer] dictation software. please excuse any grammatical, word or spelling errors. Time with Patient: Less than 30
--- NOTE | 2024-05-09 14:29 | P.PN ---
Subjective Progress Note Date: 05/08/24 Principal diagnosis: Reason for follow-up is bilateral lower extremity cellulitis right leg ulcer Patient is a 84-year-old female with a past medical history significant for diabetes mellitus hypertension hyperlipidemia osteoarthritis dementia patient has been brought into the hospital for evaluation of bilateral lower extremity swelling redness and drainage has been diagnosed with a venous stasis ulcer and cellulitis. On today's evaluation that is 05/08/2024,the patient denies any fever or any chills, patient is breathing comfortably on room air, the patient denies chest pain shortness of breath and no significant cough, patient denies abdominal pain, no nausea vomiting or diarrhea. Denies pain to bilateral lower extremity. No new lab has been repeated today Objective - Vital Signs Vital signs: Vital Signs Temp 98.4 F 05/08/24 07:00 Pulse 90 05/08/24 07:00 Resp 16 05/08/24 07:00 BP 142/73 05/08/24 07:00 Pulse Ox 98 05/08/24 07:00 FiO2 Intake & Output 05/07/24 05/08/24 05/08/24 18:59 06:59 18:59 Intake Total 236 Balance 236 Intake: Oral 236 Other: Voiding Method Diaper Diaper Diaper Incontinent Incontinent Incontinent # Voids 2 1 2 # Bowel Movements 1 1 - Exam GENERAL DESCRIPTION: An elderly female lying in bed in no distress RESPIRATORY SYSTEM: Unlabored breathing , decreased breath sounds at bases HEART: S1 S2 regular rate and rhythm , ABDOMEN: Soft , no tenderness EXTREMITIES: Right lower extremity with an ulcer no significant slough tissue some surrounding redness - Labs CBC & Chem 7: 05/09/24 05:28 05/09/24 05:28 Assessment and Plan (1) Bilateral lower leg cellulitis Current Visit: Yes Status: Acute Code(s): L03.116 - CELLULITIS OF LEFT LOWER LIMB; L03.115 - CELLULITIS OF RIGHT LOWER LIMB SNOMED Code(s): 249213705 (2) Failure of outpatient treatment Current Visit: No Status: Acute Code(s): Z78.9 - OTHER SPECIFIED HEALTH STATUS SNOMED Code(s): 165354823 Plan: 1patient presented to hospital with increasing swelling and redness to bilateral lower extremity this patient did have diffuse swelling and redness some blister which has dried out no open wound or any drainage with a cellulitis likely from gram-positive skin gurdeep 2-leukocytosis more likely due to cellulitis, the patient white count has normalized 3-local wound care with Aquacel silver dressing to the open ulcer followed by Vasyl wrap from just above the toe to below the knee 4-patient currently being treated with cefazolin 2 g every 8 hours while inpatient and monitor clinical course closely at bedside question answered Dictation was produced using [employer] dictation software. please excuse any grammatical, word or spelling errors. Time with Patient: Less than 30
--- NOTE | 2024-05-09 14:31 | P.DS ---
Providers Date of admission: 05/06/24 08:35 Expected date of discharge: 05/09/24 Attending physician: Lemuel Castro Consults: 05/03/24 18:17 Consult Physician Urgent Consulting Provider: Le Nino Consult Reason/Comments: Cellulitis Do you want consulting provider notified?: Yes Primary care physician: Yahir Greene Hospital Course: Discharge diagnoses; #Chronic venous insufficiency of bilateral lower limbs #Venous insufficiency ulcers bilaterally #Lower extremity edema #Mechanical fall #Lower extremity weakness #Pleural effusion, small bilateral #Dementia Hospital course; History of present illness; Patient is an 84-year-old female with hypertension, diabetes, severe dementia presenting with bilateral lower extremity swelling with wound. Patient with dementia and poor historian. Spoke with daughter over phone who states that over the last few weeks her mother has become increasingly weak with 2 falls, last being yesterday when she got up off toilet and fell onto her chest and abdomen. She does have history of lower extremity cellulitis. She is increasingly tired when walking short distances. She also attest to sleeping on recliner for years. And she has previously been seen by cardiology associates, for stated abnormal echo. Currently patient unable to answer questions however noted to be in distress when turning and examining lower extremities. Labs done in ER significant for WBC 12, neutrophils 9.1, sodium 135, BUN 25, creatinine 0.57, glucose 187, proBNP 404, UA is unremarkable. During hospital stay patient was treated for bilateral lower extremity ulcers with course of antibiotics. She was followed closely by ID for treatment. She was also evaluated by PT OT who suggested subacute rehab on discharge. Patient seems to be at baseline mentation. Patient is stable for discharge to [facility]. She will be discharged on new medication Keflex 500 mg 3 times daily for 7 days. She can resume her home medications. She is to follow-up with her PCP. PHYSICAL EXAMINATION: Vitals reviewed GENERAL: No acute distress. Well developed, well nourished. HEENT: Pupils are round and equally reacting to light. EOMI. No scleral icterus. Normocephalic, atraumatic. CARDIOVASCULAR: S1 and S2 present. No murmurs, rubs, or gallops. PULMONARY: Chest is clear to auscultation, no wheezing, rhonchi, or crackles. ABDOMEN: Soft, nontender, nondistended, normoactive bowel sounds. No palpable organomegaly. MUSCULOSKELETAL: No apparent joint swelling and deformities. EXTREMITIES: No apparent cyanosis, clubbing, or no pedal edema. NEUROLOGICAL: The patient is alert and oriented x1, Gross neurological examination did not reveal any focal deficits. SKIN: Lower extremities wrapped in bandages and sterile dressings. Dictation was produced using [employer] dictation software. please excuse any grammatical, word or spelling errors. Attestation I have seen and examined this patient with my resident , discussed the same with the resident/BRANDEN, and agree with the dictator's assessment and plan as written Dr. Hector gao Patient Condition at Discharge: Stable Plan - Discharge Summary New Discharge Prescriptions: New Cephalexin [Keflex] 500 mg PO TID 7 Days #21 cap Continue atenoloL 100 mg PO DAILY Atorvastatin [Lipitor] 40 mg PO DAILY Discharge Medication List atenoloL 100 mg PO DAILY 05/22/16 [History] Atorvastatin [Lipitor] 40 mg PO DAILY 09/19/23 [History] Cephalexin [Keflex] 500 mg PO TID 7 Days #21 cap 05/09/24 [Rx] Follow up Appointment(s)/Referral(s): Yahir Greene MD [Primary Care Provider] - 1-2 days Services,[facility] [NON-STAFF] - As Needed (DAY PROGRAM IF INTERESTED) [facility], [NON-STAFF] - As Needed (MUST FOLLOW WITH PCP KULDEEP SO PCP WILL FOLLOW FOR HHC ) Activity/Diet/Wound Care/Special Instructions: PLEASE SCHEDULE PATIENTS APPOINTMENT BEFORE DISCHARGED. MUST FOLLOW WITH PCP KULDEEP SO PCP WILL FOLLOW FOR HHC Discharge/Stand Alone Forms: Community Resources, Help In The Home Discharge Disposition: TRANSFER TO SNF/ECF
[2024-05-09] MEDS: ZINC OXIDE PASTE (Z-GUARD) 1 APPLIC TOPICAL PRN (22:18)
[2024-05-10 14:51] VITALS: BP 132/70; PULSE 80; RESP 16; TEMP 97.4
--- NOTE | 2024-05-10 15:26 | P.PN ---
Subjective Progress Note Date: 05/10/24 History of present illness; Patient is an 84-year-old female with hypertension, diabetes, severe dementia p resenting with bilateral lower extremity swelling with wound. Patient with dementia and poor historian. Spoke with daughter over phone who states that over the last few weeks her mother has become increasingly weak with 2 falls, last being yesterday when she got up off toilet and fell onto her chest and abdomen. She does have history of lower extremity cellulitis. She is increasingly tired when walking short distances. She also attest to sleeping on recliner for years. And she has previously been seen by cardiology associates, for stated abnormal echo. Currently patient unable to answer questions however noted to be in distress when turning and examining lower extremities. Labs done in ER significant for WBC 12, neutrophils 9.1, sodium 135, BUN 25, creatinine 0.57, glucose 187, proBNP 404, UA is unremarkable. Spoke with the ER physician, patient admission was accepted by internal medicine service for treatment. 05/05/2024 Patient is seen in follow-up today continued on cefazolin with infectious disease following and continued wound care of the bilateral lower extremities. Currently awaiting a.m. labs as potassium was slightly low and replaced yesterday. Will have PT/OT therapy evaluate the patient in the a.m. and discuss with case management/social work regarding discharge planning. 05/06/2024 Patient seen and examined at bedside with family present. She continues to endorse generalized pain. She continues on cefazolin and is followed by ID. PT/OT suggest subacute rehab on discharge. Today's labs sodium 133, potassium 3.9, glucose 129. 05/07/2024 Patient seen and examined at bedside. She states she is in no pain today. in room states she is at baseline mentation. She continues on IV cefazolin 2 g IVPB 8 every 8 hours. Lab significant today WBC 9.9, sodium 138, potassium 3.9, glucose 129. Will continue to wait on placement. 05/08. Patient seen and examined. Patient continues to be pleasantly confused which is her baseline. 05/09/2024. Patient seen and examined at bedside. Patient was initially to be discharged to ECF, which will take place tomorrow. 05/10/2024. Patient seen and examined at bedside. No acute events overnight. At baseline mentation. Awaiting discharge to ECF. REVIEW OF SYSTEMS: Unable to obtain due to mental status. PHYSICAL EXAMINATION: Vitals reviewed GENERAL: No acute distress. Well developed, well nourished. HEENT: Pupils are round and equally reacting to light. EOMI. No scleral icterus. Normocephalic, atraumatic. CARDIOVASCULAR: S1 and S2 present. No murmurs, rubs, or gallops. PULMONARY: Chest is clear to auscultation, no wheezing, rhonchi, or crackles. ABDOMEN: Soft, nontender, nondistended, normoactive bowel sounds. No palpable organomegaly. MUSCULOSKELETAL: No apparent joint swelling and deformities. EXTREMITIES: No apparent cyanosis, clubbing, or 1+ pedal edema. NEUROLOGICAL: The patient is alert and oriented x1, Gross neurological examination did not reveal any focal deficits. SKIN: Lower extremities wrapped in bandages and sterile dressings. Assessment and plan Patient is an 84-year-old female with hypertension, diabetes, dementia presenting with bilateral lower extremity swelling with wound. #Chronic venous insufficiency of bilateral lower limbs #Venous insufficiency ulcers bilaterally #Lower extremity edema -blood culture no growth -Continue cefazolin 2gm q8hr -Continue Z guard and nystatin topical treatment Continue wound care ID following and will continue current regimen # Mechanical fall #Lower extremity weakness CT lumbar spine findings of no acute fracture, lumbosacral degenerative changes, trace pleural effusion Lidocaine patch PT OT suggest subacute rehab on discharge #Pleural effusion, small bilateral Chest x-ray with pulmonary vascular congestion Echocardiogram finding of EF 55%, mild LVH - proBNP 404 One-time dose IV Lasix 40 mg as above Resume home medication #Dementia Patient seems to be at baseline mentation, A+O x 1 Chronic Medical Conditions #Diabetes mellitus, type 2 Diet controlled, no home medication #Hyperlidemia - Resume home medication F: P.o. E: Replete as needed N: Regular diet DVT ppx: Subq Lovenox 40 meq daily Code status: No code Anticipated discharge place: [facility] Anticipated discharge time: Today or tomorrow Dictation was produced using [employer] dictation software. Please excuse any grammatical, word or spelling errors. Attestation I have seen and examined this patient with my resident , discussed the same with the resident/BRANDEN, and agree with the dictator's assessment and plan as written Dr. Hector gao Objective - Vital Signs Vital signs: Vital Signs Temp 98.5 F 05/10/24 08:00 Pulse 99 05/10/24 08:00 Resp 17 05/10/24 08:00 BP 158/80 05/10/24 08:00 Pulse Ox 95 05/10/24 08:00 FiO2 Intake & Output 05/09/24 05/10/24 05/10/24 18:59 06:59 18:59 Intake Total 118 Balance 118 Intake: Oral 118 Other: Voiding Method Diaper Diaper Incontinent Incontinent # Voids 2 # Bowel Movements 1 1 - Labs CBC & Chem 7: 05/09/24 05:28 05/09/24 05:28 Labs: Abnormal Lab Results - Last 24 Hours (Table) 05/09/24 Range/Units 05:28 Creatinine 0.5 L (0.6-1.5) mg/dL BUN/Creatinine Ratio 30.40 H (12.00-20.00) Ratio Calcium 8.5 L (8.7-10.3) mg/dL
--- NOTE | 2024-05-10 15:47 | P.PN ---
Subjective Progress Note Date: 05/10/24 Principal diagnosis: Reason for follow-up is bilateral lower extremity cellulitis right leg ulcer Patient is a 84-year-old female with a past medical history significant for diabetes mellitus hypertension hyperlipidemia osteoarthritis dementia patient has been brought into the hospital for evaluation of bilateral lower extremity swelling redness and drainage has been diagnosed with a venous stasis ulcer and cellulitis. On today's evaluation that is 05/10/2024, the patient continues to be afebrile, the patient is on room air and breathing comfortably, the Pt denies having any chest pain or cough, the patient denies having any abdominal pain no vomiting or any diarrhea and denies pain to bilateral lower extremity. No new lab has been obtained today Objective - Vital Signs Vital signs: Vital Signs Temp 98.5 F 05/10/24 08:00 Pulse 99 05/10/24 08:00 Resp 17 05/10/24 08:00 BP 158/80 05/10/24 08:00 Pulse Ox 95 05/10/24 08:00 FiO2 Intake & Output 05/09/24 05/10/24 05/10/24 18:59 06:59 18:59 Intake Total 118 Balance 118 Intake: Oral 118 Other: Voiding Method Diaper Diaper Diaper Incontinent Incontinent # Voids 2 # Bowel Movements 1 1 - Exam GENERAL DESCRIPTION: An elderly female lying in bed in no distress RESPIRATORY SYSTEM: Unlabored breathing , decreased breath sounds at bases HEART: S1 S2 regular rate and rhythm , ABDOMEN: Soft , no tenderness EXTREMITIES: Right lower extremity swelling redness resolved wound on the right lateral leg is drying out - Labs CBC & Chem 7: 05/09/24 05:28 05/09/24 05:28 Assessment and Plan (1) Bilateral lower leg cellulitis Current Visit: Yes Status: Acute Code(s): L03.116 - CELLULITIS OF LEFT LOWER LIMB; L03.115 - CELLULITIS OF RIGHT LOWER LIMB SNOMED Code(s): 709689708 (2) Failure of outpatient treatment Current Visit: No Status: Acute Code(s): Z78.9 - OTHER SPECIFIED HEALTH STATUS SNOMED Code(s): 796814568 Plan: 1patient presented to hospital with increasing swelling and redness to bilater al lower extremity this patient did have diffuse swelling and redness some blister which has dried out no open wound or any drainage with a cellulitis likely from gram-positive skin gurdeep 2-leukocytosis more likely due to cellulitis, the patient white count has normalized 3-local wound care with Aquacel silver dressing to the open ulcer followed by Vasyl wrap from just above the toe to below the knee 4plan is to finish therapy with oral Keflex and a close outpatient follow-up at the bedside question answered Dictation was produced using [employer] dictation software. please excuse any gramm atical, word or spelling errors. Time with Patient: Less than 30
== END 2024-05-10 18:11 | DRG 300 ==
LOC: EC 14:37 → 6NMEDSUR 18:12 → OBSVTOIN 05-06 08:35
PROVIDERS: ADMIT Internal Medicine; ATTEND Internal Medicine
DX: I87.2 Venous insufficiency (chronic) (peripheral) (principal); J90 Pleural effusion, not elsewhere classified; L03.115 Cellulitis of right lower limb; L03.116 Cellulitis of left lower limb; F03.C0 Unspecified dementia, severe, without behavioral disturbance, psychotic disturbance, mood disturbance, and anxiety; I10 Essential (primary) hypertension; E11.9 Type 2 diabetes mellitus without complications; E78.5 Hyperlipidemia, unspecified; W19.XXXA Unspecified fall, initial encounter; Z79.82 Long term (current) use of aspirin; Z79.899 Other long term (current) drug therapy
CPT/HCPCS: 36415; 71045; 72131; 80048; 80053; 81003; 82565; 83605; 83735; 83880; 85025; 85027; 87040; 93306; 96365; 96366; 99284